=== PATIENT | female | born 1940 | race Caucasian/White ===

== ENCOUNTER 2017-03-19 20:08 | Emergency (ER) | payer MEDICARE, BC ==
--- NOTE | 2017-03-19 20:45 | EDM.PDOC ---
ED HPI GENERAL MEDICAL PROBLEM - General Chief Complaint: Lower Extremity Injury/Pain Stated Complaint: FELL INJURED LEG HIP Time Seen by Provider: 03/19/17 20:20 Source of Information: Reports: Patient, EMS History Limitations: Reports: No Limitations - History of Present Illness INITIAL COMMENTS - FREE TEXT/NARRATIVE: 76-year-old female stumbled in her garage landing on her right hip. She has significant pain in the hip with any movement, is unable to get up and has shortening and external rotation of the right lower extremity. She has no numbness to the foot and can move her toes. Other than a small superficial abrasion on the elbow she has no other injury. She was able to call the ambulance right away so there was no significant downtime. She does have chronic atrial fibrillation and is on Coumadin. Onset: Sudden Duration: Hour(s): (Within the last hour) Location: Reports: Lower Extremity, Right Severity: Moderate Worsens with: Reports: Movement (Any movement of the right lower extremity causes increased pain) right hip Pain Score (Numeric/FACES): 10 - Related Data Allergies Allergy/AdvReac Type Severity Reaction Status Date / Time adhesive Allergy Mild Rash Verified 05/18/15 08:23 bacitracin Allergy Blisters Verified 05/18/15 08:23 brimonidine tartrate Allergy Swelling Verified 05/18/15 08:23 [From Alphagan P] chloramphenicol Allergy Hives Verified 05/18/15 08:23 [From Chloromycetin] chloramphenicol sod succ Allergy Hives Verified 05/18/15 08:23 [From Chloromycetin] lidocaine [From Lidoderm] Allergy Rash Verified 05/18/15 08:23 timolol maleate Allergy Swelling Verified 05/18/15 08:23 [From Timoptic] vancomycin Allergy Hives Verified 05/22/15 17:51 codeine AdvReac Nausea and Verified 05/18/15 08:23 Vomiting meperidine HCl [From Demerol] AdvReac Nausea and Verified 05/18/15 08:23 Vomiting Home Meds: Home Meds Betaxolol [Betoptic S 0.25% Ophth Susp] 1 drop EYERT BID 02/25/13 [History] Latanoprost [Xalatan 0.005% Ophth Soln] 1 drop EYERT BEDTIME 02/25/13 [History] Metoprolol Tartrate [Lopressor] 100 mg PO BID 02/25/13 [History] Thyroid [[place] Thyroid] 60 mg PO SUMOWETHFR@0730 02/25/13 [History] Warfarin Sodium 5 mg PO SUTUTHSA 02/25/13 [History] atorvaSTATin [Lipitor] 60 mg PO BEDTIME 02/26/13 [History] Calcium Carbonate/Vitamin D3 [Calcium Carbonate/Vitamin D 1250 MG-200 Unit] 1 tab PO TID 02/13/15 [History] Glucosamine Sulfate 500 mg PO BID 02/13/15 [History] [place]-3S/DHA/Epa/Fish Oil [[place]-3 Fish Oil 1,000 mg Sfgl] 1,000 mg PO TID 02/18 [History] Cholecalciferol (Vitamin D3) [Vitamin D3] 1 tab PO BID 05/10/15 [History] Multivitamin [Multivitamins] 1 tab PO DAILY 05/10/15 [History] Warfarin Sodium 2.5 mg PO MOWEFR 05/10/15 [History] Furosemide [Lasix] 20 mg PO DAILY 05/15/15 [History] Thyroid [[place] Thyroid] 120 mg PO TUSA@0730 05/18/15 [History] Diltiazem HCl [Cartia Xt] 120 mg PO DAILY 03/19/17 [History] Past Medical History Other Respiratory History: Has not been using CPAP Other Neuro History: no residual Other Endocrine/Metabolic History: prediabetic Other Hematologic History: on coumadin - Past Surgical History Other Cardiovascular Surgeries/Procedures: cardioversions, DVT in right leg, stent brachiocephalic stent Other GI Surgeries/Procedures: rhonda echo prior to ablation and cardioversions Other Neurological Surgeries/Procedures: blocked l- caroitendartectomy x2 Other Musculoskeletal Surgeries/Procedures:: fx right ankle Other Oncologic Surgeries/Procedures: left mastectomy Social & Family History - Tobacco Use Smoking Status *Q: Never Smoker Years of Tobacco use: 50 Packs/Tins Daily: 1 Used Tobacco, but Quit: Yes Month Tobacco Last Used: February Second Hand Smoke Exposure: No - Alcohol Use Days Per Week of Alcohol Use: 7 Number of Drinks Per Day: 1 Total Drinks Per Week: 7 - Recreational Drug Use Recreational Drug Use: No - Living Situation & Occupation Living situation: Reports: , with Spouse Occupation: Retired Review of Systems - Review of Systems Review Of Systems: See Below Constitutional: Denies: Fever Respiratory: Denies: Shortness of Breath Cardiovascular: Denies: Chest Pain GI/Abdominal: Denies: Abdominal Pain Genitourinary: Denies: Dysuria Skin: Reports: Other (Small abrasion on the right elbow) Neurological: Denies: Headache ED EXAM, GENERAL - Physical Exam Exam: See Below Exam Limited By: No Limitations General Appearance: Alert, No Apparent Distress, Other (Patient is fairly comfortable on arrival to ER, received Dilaudid for pain control in route. No additional pain medication was needed initially.) Respiratory/Chest: No Respiratory Distress Cardiovascular: Irregularly Irregular GI/Abdominal: Soft, Non-Tender Extremities: Other (Patient is very tender around the proximal right femur especially with any passive range of motion of the right leg. She has an excellent dorsalis pedis pulse on the right side and normal sensation and movement of the toes) Neurological: Alert, Oriented Psychiatric: Normal Affect, Normal Mood Skin Exam: Warm, Dry Course - Vital Signs Last Recorded V/S: Last Vital Signs Temp 97.9 F 03/19/17 20:13 Pulse 60 03/19/17 22:50 Resp 20 03/19/17 22:50 BP 142/99 H 03/19/17 22:50 Pulse Ox 98 03/19/17 22:50 - Orders/Labs/Meds Orders: Active Orders 24 hr Category Date Time Status Insert Webster Catheter [Insert Urinary Catheter] [OM.PC] Care 03/19/17 20:45 Ordered Q24H Urinary Catheter Assessment [RC] ASDIRECTED Care 03/19/17 20:40 Active Hip Min 2V or 3V w Pelvis Rt [CR] Stat Exams 03/19/17 20:40 Taken Labs: Laboratory Tests 03/19/17 03/19/17 03/19/17 Range/Units 20:53 20:53 20:53 WBC 8.4 (4.5-11.0) K/uL RBC 3.33 (3.30-5.50) M/uL Hgb 12.6 D (12.0-15.0) g/dL Hct 36.6 (36.0-48.0) % MCV 110 H (80-98) fL MCH 38 H (27-31) pg MCHC 34 (32-36) % Plt Count 124 L (150-400) K/uL Neut % (Auto) 72 H (36-66) % Lymph % (Auto) 17 L (24-44) % [place] % (Auto) 9 H (2-6) % Eos % (Auto) 1 L (2-4) % Baso % (Auto) 1 (0-1) % PT 20.3 H (9.5-12.0) sec INR 1.85 H (0.80-1.20) Sodium 142 (140-148) mmol/L Potassium 3.3 L (3.6-5.2) mmol/L Chloride 100 (100-108) mmol/L Carbon Dioxide 32 (21-32) mmol/L Anion Gap 13.3 (5.0-14.0) mmol/L BUN 20 H D (7-18) mg/dL Creatinine 1.0 (0.6-1.0) mg/dL Est Cr Clr Drug Dosing 53.49 mL/min Estimated GFR (MDRD) 54 L (>60) Glucose 110 H (74-106) mg/dL Calcium 8.5 (8.5-10.1) mg/dL - Re-Assessments/Exams Free Text/Narrative Re-Assessment/Exam: 03/19/17 20:45 CBC, BMP and pro time were obtained as well as an x-ray of the right hip and pelvis. 03/19/17 21:22 X-ray confirmed an intertrochanteric fracture with displacement. 03/19/17 21:22 Hemoglobin and white count are normal. INR is 1.85. A Webster was placed, orthopedics in [place] is unable to accept the patient. 03/19/17 22:24 Dr. Salas and Dr. Estrada of [facility] were kind enough to accept the patient. She'll be transferred via EMS. Departure - Departure Time of Disposition: 22:59 Disposition: DC/Tfer to Other Condition: Fair Clinical Impression: Closed intertrochanteric fracture of right hip Qualifiers: Encounter type: initial encounter Fracture alignment: displaced Qualified Code( s): S72.141A - Displaced intertrochanteric fracture of right femur, initial encounter for closed fracture Atrial fibrillation Qualifiers: Atrial fibrillation type: chronic Qualified Code(s): I48.2 - Chronic atrial fibrillation - Discharge Information Referrals: Gill Corrales PA [Primary Care Provider] - Forms: ED Department Discharge Care Plan Goals: Patient will be transferred to [facility] for inpatient hospitalization, medical evaluation and ultimately right hip orthopedic repair. - My Orders Last 24 Hours: My Active Orders 03/19/17 20:40 Urinary Catheter Assessment [RC] ASDIRECTED Hip Min 2V or 3V w Pelvis Rt [CR] Stat 03/19/17 20:45 Insert Webster Catheter [Insert Urinary Catheter] [OM.PC] Q24H - Assessment/Plan Last 24 Hours: My Active Orders 03/19/17 20:40 Urinary Catheter Assessment [RC] ASDIRECTED Hip Min 2V or 3V w Pelvis Rt [CR] Stat 03/19/17 20:45 Insert Webster Catheter [Insert Urinary Catheter] [OM.PC] Q24H
[2017-03-19 22:51] VITALS: BP 142/99
--- NOTE | 2017-03-20 09:20 | CR ---
Hip Min 2V or 3V w Pelvis Rt HISTORY: Fall, pain. COMPARISON: None FINDINGS: Intertrochanteric fracture of the right hip with avulsion of the lesser trochanter. Moderat e angulation of the fracture. Moderate degenerative change. The visualized pelvis demonstrates no fra cture.
== END 2017-03-19 23:00 | disposition other institution (70) ==
LOC: JP.ED 20:08
DX: S72.141A Displaced intertrochanteric fracture of right femur, initial encounter for closed fracture (principal); I48.2 Chronic atrial fibrillation; Z88.8 Allergy status to other drugs, medicaments and biological substances; Z88.1 Allergy status to other antibiotic agents; Z88.5 Allergy status to narcotic agent; Z79.899 Other long term (current) drug therapy; Z79.01 Long term (current) use of anticoagulants; W18.40XA Slipping, tripping and stumbling without falling, unspecified, initial encounter
CPT/HCPCS: 36415; 51702; 73502-26-RT; 73502-RT; 80048; 85025; 85610; 99285; 99285-25

== ENCOUNTER 2017-05-12 05:55 | Inpatient (IN) | payer MEDICARE, BC ==
--- NOTE | 2017-05-12 06:33 | EDM.PDOC ---
<OfficerKristian - Last Filed: 05/12/17 06:30> ED HPI GENERAL MEDICAL PROBLEM - General Stated Complaint: SOB Time Seen by Provider: 05/12/17 06:21 Source of Information: Reports: Patient, Family, RN Notes Reviewed History Limitations: Reports: No Limitations - History of Present Illness INITIAL COMMENTS - FREE TEXT/NARRATIVE: 76-year-old female presents to the emergency department day complaint of shortness of breath, she states she was feeling fine yesterday has recently discharged from the hospital for femur fracture, 2 weeks ago this morning she awoke at about 5 this morning sudden shortness of breath feels better when she sits up, at this time when she sitting up she does not feel short of breath however she lays back down she will get short of breath, denies any chest pain nausea vomiting diaphoresis no particular weight gain or leg swelling was recently stopped from her Lasix - Related Data Allergies Allergy/AdvReac Type Severity Reaction Status Date / Time adhesive Allergy Mild Rash Verified 05/12/17 06:04 bacitracin Allergy Blisters Verified 05/12/17 06:04 brimonidine tartrate Allergy Swelling Verified 05/12/17 06:04 [From Alphagan P] chloramphenicol Allergy Hives Verified 05/12/17 06:04 [From Chloromycetin] chloramphenicol sod succ Allergy Hives Verified 05/12/17 06:04 [From Chloromycetin] lidocaine [From Lidoderm] Allergy Rash Verified 05/12/17 06:04 timolol maleate Allergy Swelling Verified 05/12/17 06:04 [From Timoptic] vancomycin Allergy Hives Verified 05/12/17 06:04 codeine AdvReac Nausea and Verified 05/12/17 06:04 Vomiting meperidine HCl [From Demerol] AdvReac Nausea and Verified 05/12/17 06:04 Vomiting Home Meds: Home Meds Betaxolol [Betoptic S 0.25% Ophth Susp] 1 drop EYERT BID 02/25/13 [History] Metoprolol Tartrate [Lopressor] 50 mg PO BID 02/25/13 [History] Thyroid [[place] Thyroid] 60 mg PO SUMOWETHFR@0730 02/25/13 [History] Warfarin Sodium 5 mg PO SUTUTHSA 02/25/13 [History] atorvaSTATin [Lipitor] 60 mg PO BEDTIME 09/10/13 [History] Calcium Carbonate/Vitamin D3 [Calcium Carbonate/Vitamin D 1250 MG-200 Unit] 1 tab PO TID 02/13/15 [History] Glucosamine Sulfate 500 mg PO BID 02/13/15 [History] [place]-3S/DHA/Epa/Fish Oil [[place]-3 Fish Oil 1,000 mg Sfgl] 1,000 mg PO TID 02/18 [History] Cholecalciferol (Vitamin D3) [Vitamin D3] 1 tab PO BID 05/10/15 [History] Multivitamin [Multivitamins] 1 tab PO DAILY 05/10/15 [History] Warfarin Sodium 2.5 mg PO MOWEFR 05/10/15 [History] Thyroid [[place] Thyroid] 120 mg PO TUSA@0730 05/18/15 [History] Magnesium Oxide [Magnesium] 05/12/17 [History] Potassium Chloride [Potassium Chloride] 05/12/17 [History] Past Medical History Other Respiratory History: Has not been using CPAP Endocrine/Metabolic History: Reports: Hypothyroidism Other Endocrine/Metabolic History: prediabetic Hematologic History: Reports: Anticoagulation Therapy - Past Surgical History Other Cardiovascular Surgeries/Procedures: cardioversions, DVT in right leg, stent brachiocephalic stent Other GI Surgeries/Procedures: rhonda echo prior to ablation and cardioversions Other Neurological Surgeries/Procedures: blocked l- caroitendartectomy x2 Other Musculoskeletal Surgeries/Procedures:: fx right ankle Other Oncologic Surgeries/Procedures: left mastectomy Social & Family History - Tobacco Use Smoking Status *Q: Never Smoker Years of Tobacco use: 50 Packs/Tins Daily: 1 Used Tobacco, but Quit: Yes Month Tobacco Last Used: February Second Hand Smoke Exposure: No - Alcohol Use Days Per Week of Alcohol Use: 7 Number of Drinks Per Day: 1 Total Drinks Per Week: 7 - Recreational Drug Use Recreational Drug Use: No - Living Situation & Occupation Living situation: Reports: , with Spouse Occupation: Retired ED ROS GENERAL - Review of Systems Review Of Systems: See Below Constitutional: Denies: Fever, Chills HEENT: Reports: No Symptoms Respiratory: Reports: Shortness of Breath. Denies: Wheezing, Cough, Sputum Cardiovascular: Reports: No Symptoms GI/Abdominal: Reports: No Symptoms : Reports: No Symptoms Musculoskeletal: Reports: No Symptoms Skin: Reports: No Symptoms Neurological: Reports: No Symptoms ED EXAM, GENERAL - Physical Exam Exam: See Below Free Text/Narrative:: General: Elderly female, not in any distress, alert and oriented x3 HEENT: head is atraumatic normocephalic, eyes pupils equal round reactive to light, sclera clear no conjunctivitis appreciated. Ears tympanic membranes clear and [place] landmarks and light reflex are present bilaterally canals are clear. Nose no septal deviation, nares are clear, no blood present. Mouth mucosa is moist and pink no erythema or exudate noted in soft palate, tongue is midline uvula is midline, dentition is intact. Neck: Supple no thyromegaly no tracheal deviation. Nodes: Cervical nodes subclavicular nodes nontender no palpable lymphadenopathy noted. Lungs: clear to auscultation bilaterally with symmetrical respirations, no adventitious noise appreciated. CV: Regular rate and rhythm S1 and S2 appreciated no murmurs rubs or gallops noted. Abdomen: Soft, nontender, no palpable masses or organomegaly appreciated, no distention no guarding bowel sounds are present, . Neuro: Cranial nerves II through XII grossly intact Skin: Warm and dry, intact Extremities: Trace edema appreciated in lower extremities bilaterally Course - Vital Signs Last Recorded V/S: Last Vital Signs Temp 98.8 F 05/12/17 10:00 Pulse 108 H 05/12/17 12:00 Resp 18 05/12/17 12:00 BP 119/66 05/12/17 12:00 Pulse Ox 100 05/12/17 12:00 - Orders/Labs/Meds Orders: Active Orders 24 hr Category Date Time Status Cardiac Monitoring [RC] .As Directed Care 05/12/17 06:28 Inactive Ang Chest [CT] Stat Exams 05/12/17 07:19 Taken Sodium Chloride 0.9% [Saline Flush] Med 05/12/17 07:38 Active 10 ml FLUSH ONETIME PRN EKG 12 Lead [EK] Stat Ther 05/12/17 06:29 Stop Req Medication Orders Acetaminophen (Tylenol) 650 mg PO Q4H PRN PRN Reason: Pain (Mild 1-3)/fever Atorvastatin Calcium (Lipitor) 60 mg PO BEDTIME CELE Diltiazem HCl 100 mg/ Sodium (Chloride) 100 mls @ 5 mls/hr IV TITRATE CELE; 5 MG /HR PRN Reason: Protocol Last Titration: 05/12/17 13:38 Dose: 10 mg/hr, 10 mls/hr Admin: 05/12/17 10:25 Dose: 5 mg/hr, 5 mls/hr Sodium Chloride (Normal Saline) 1,000 mls @ 25 mls/hr IV ASDIRECTED [facility] Last Admin: 05/12/17 10:20 Dose: 25 mls/hr Metoprolol Tartrate (Lopressor) 50 mg PO Q12H [facility] Non-Formulary Medication (Betaxolol [Betoptic S 0.25% Ophth Susp]) 1 drop EYERT BID [facility] Ondansetron HCl (Zofran Odt) 4 mg PO Q6H PRN PRN Reason: Nausea able to take PO Polyethylene Glycol (Miralax) 17 gm PO DAILY PRN PRN Reason: Constipation Senna/Docusate Sodium (Senna Plus) 1 tab PO BID PRN PRN Reason: Constipation Sodium Chloride (Saline Flush) 10 ml FLUSH ONETIME PRN PRN Reason: PER RADIOLOGY PROTOCOL Last Admin: 05/12/17 07:58 Dose: 10 ml Thyroid ([place] Thyroid) 60 mg PO SUMOWETHFR@0730 [facility] Last Admin: 05/12/17 10:32 Dose: 60 mg Thyroid ([place] Thyroid) 120 mg PO TUSA@0730 [facility] Warfarin Sodium (Coumadin) 2.5 mg PO MoWeFr@1300 [facility] Last Admin: 05/12/17 13:28 Dose: 2.5 mg Warfarin Sodium (Coumadin) 5 mg PO SuTuThSa@1300 [facility] Labs: Laboratory Tests 05/12/17 05/12/17 05/12/17 Range/Units 06:37 06:37 06:37 WBC 6.7 (4.5-11.0) K/uL RBC 3.25 L (3.30-5.50) M/uL Hgb 11.0 L (12.0-15.0) g/dL Hct 34.8 L (36.0-48.0) % MCV 107 H (80-98) fL MCH 34 H (27-31) pg MCHC 32 (32-36) % Plt Count 150 (150-400) K/uL Neut % (Auto) 73 H (36-66) % Lymph % (Auto) 12 L (24-44) % Pepin % (Auto) 13 H (2-6) % Eos % (Auto) 3 (2-4) % Baso % (Auto) 1 (0-1) % PT 25.3 H (9.5-12.0) sec INR 2.28 H (0.80-1.20) APTT 34.0 (27.0-36.0) sec Sodium 142 (140-148) mmol/L Potassium 4.3 (3.6-5.2) mmol/L Chloride 104 (100-108) mmol/L Carbon Dioxide 29 (21-32) mmol/L Anion Gap 8.7 (5.0-14.0) mmol/L BUN 18 (7-18) mg/dL Creatinine 0.8 (0.6-1.0) mg/dL Est Cr Clr Drug Dosing 66.87 mL/min Estimated GFR (MDRD) > 60 (>60) Glucose 98 (74-106) mg/dL Calcium 9.4 (8.5-10.1) mg/dL Total Bilirubin 0.7 (0.2-1.0) mg/dL AST 32 (15-37) U/L ALT 24 (12-78) U/L Alkaline Phosphatase 99 (46-116) U/L CK-MB (CK-2) 0.3 (0-3.6) mg/mL Troponin I < 0.017 (0.000-0.056) ng/mL NT-Pro-B Natriuret Pep (5-450) pg/mL Total Protein 7.0 (6.4-8.2) g/dL Albumin 2.9 L (3.4-5.0) g/dL Globulin 4.1 H (2.3-3.5) g/dL Albumin/Globulin Ratio 0.7 L (1.2-2.2) 05/12/17 Range/Units 06:58 WBC (4.5-11.0) K/uL RBC (3.30-5.50) M/uL Hgb (12.0-15.0) g/dL Hct (36.0-48.0) % MCV (80-98) fL MCH (27-31) pg MCHC (32-36) % Plt Count (150-400) K/uL Neut % (Auto) (36-66) % Lymph % (Auto) (24-44) % Pepin % (Auto) (2-6) % Eos % (Auto) (2-4) % Baso % (Auto) (0-1) % PT (9.5-12.0) sec INR (0.80-1.20) APTT (27.0-36.0) sec Sodium (140-148) mmol/L Potassium (3.6-5.2) mmol/L Chloride (100-108) mmol/L Carbon Dioxide (21-32) mmol/L Anion Gap (5.0-14.0) mmol/L BUN (7-18) mg/dL Creatinine (0.6-1.0) mg/dL Est Cr Clr Drug Dosing mL/min Estimated GFR (MDRD) (>60) Glucose (74-106) mg/dL Calcium (8.5-10.1) mg/dL Total Bilirubin (0.2-1.0) mg/dL AST (15-37) U/L ALT (12-78) U/L Alkaline Phosphatase (46-116) U/L CK-MB (CK-2) (0-3.6) mg/mL Troponin I (0.000-0.056) ng/mL NT-Pro-B Natriuret Pep 2684 H (5-450) pg/mL Total Protein (6.4-8.2) g/dL Albumin (3.4-5.0) g/dL Globulin (2.3-3.5) g/dL Albumin/Globulin Ratio (1.2-2.2) Meds: Medications Generic Name Dose Route Start Last Admin Trade Name Freq PRN Reason Stop Dose Admin Acetaminophen 650 mg 05/12/17 09:59 Tylenol PO Q4H PRN Pain (Mild 1-3)/fever Atorvastatin Calcium 60 mg 05/12/17 21:00 Lipitor PO BEDTIME CELE Diltiazem HCl 100 mg/ Sodium 100 mls @ 5 mls/hr 05/12/17 09:59 05/12/17 13:38 Chloride IV 10 mg/hr TITRATE CELE 10 mls/hr Protocol Titration 5 MG/HR Sodium Chloride 1,000 mls @ 25 mls/hr 05/12/17 09:59 05/12/17 10:20 Normal Saline IV 25 mls/hr ASDIRECTED CELE Administration Metoprolol Tartrate 50 mg 05/12/17 21:00 Lopressor PO Q12H CELE Non-Formulary Medication 1 drop 05/12/17 21:00 Betaxolol [Betoptic S 0.25% Ophth Susp] EYERT BID CEEL Ondansetron HCl 4 mg 05/12/17 09:59 Zofran Odt PO Q6H PRN Nausea able to take PO Polyethylene Glycol 17 gm 05/12/17 09:59 Miralax PO DAILY PRN Constipation Senna/Docusate Sodium 1 tab 05/12/17 09:59 Senna Plus PO BID PRN Constipation Sodium Chloride 10 ml 05/12/17 07:38 05/12/17 07:58 Saline Flush FLUSH 10 ml ONETIME PRN Administration PER RADIOLOGY PROTOCOL Thyroid 60 mg 05/12/17 11:30 05/12/17 10:32 [place] Thyroid PO 60 mg SUMOWETHFR@0730 CELE Administration Thyroid 120 mg 05/13/17 07:30 [place] Thyroid PO TUSA@0730 CELE Warfarin Sodium 2.5 mg 05/12/17 13:00 05/12/17 13:28 Coumadin PO 2.5 mg MoWeFr@1300 CELE Administration Warfarin Sodium 5 mg 05/13/17 13:00 Coumadin PO SuTuThSa@1300 [facility] Discontinued Medications Generic Name Dose Route Start Last Admin Trade Name Freq PRN Reason Stop Dose Admin Furosemide 40 mg 05/12/17 08:10 05/12/17 08:17 Lasix IVPUSH 05/12/17 08:11 40 mg ONETIME ONE Administration Sodium Chloride 1,000 mls @ 500 mls/hr 05/12/17 07:30 05/12/17 08:17 Normal Saline IV 10 mls/hr ASDIRECTED CELE Infusion Sodium Chloride 90 mls @ 3 mls/sec 05/12/17 07:38 05/12/17 07:58 Normal Saline IV 05/12/17 07:39 3 mls/sec ONETIME ONE Administration Iopamidol 90 ml 05/12/17 07:45 05/12/17 07:58 [id number] (76%) IV 100 ml . DIRECTED CELE Administration Metoprolol Tartrate 2.5 mg 05/12/17 07:18 05/12/17 07:24 Lopressor IVPUSH 05/12/17 07:19 2.5 mg ONETIME ONE Administration Metoprolol Tartrate 50 mg 05/12/17 07:18 05/12/17 07:27 Lopressor PO 05/12/17 07:19 50 mg ONETIME ONE Administration Departure - Departure Disposition: Admitted As Inpatient 66 Clinical Impression: SOB (shortness of breath) Atrial fibrillation Qualifiers: Atrial fibrillation type: chronic Qualified Code(s): I48.2 - Chronic atrial fibrillation Congestive heart failure Qualifiers: Congestive heart failure type: unspecified congestive heart failure type Congestive heart failure chronicity: acute on chronic Qualified Code(s): I50.9 - Heart failure, unspecified - Discharge Information - My Orders Last 24 Hours: My Active Orders 05/12/17 07:19 Ang Chest [CT] Stat 05/12/17 07:38 Sodium Chloride 0.9% [Saline Flush] 10 ml FLUSH ONETIME PRN - Assessment/Plan Last 24 Hours: My Active Orders 05/12/17 07:19 Ang Chest [CT] Stat 05/12/17 07:38 Sodium Chloride 0.9% [Saline Flush] 10 ml FLUSH ONETIME PRN <Manny Espinosa - Last Filed: 05/12/17 14:05> Course - Re-Assessments/Exams Free Text/Narrative Re-Assessment/Exam: 05/12/17 07:27 Patient care turned over from Officer. Basic rhythm is atrial fibrillation, however rate is persistently elevated. She also needs oxygen nasal cannula to feel comfortable and had normal oxygen saturations. Her INR is 2.5, but I still think she is a risk for PE with her symptoms and recent surgery. Normal saline hydration was initiated, she was given 2.5 mg of IV Lopressor and 50 mg of oral metoprolol which is her normal morning dose to give her some rate control and sent back for a CT of her chest with IV contrast. 05/12/17 08:[address] was negative for PE but showed significant findings of congestive heart failure. Patient was given 40 mg of IV Lasix, and I think she needs admission for the next 1-2 days for diuresis, rate control, and to get her medications optimized. Departure - Departure Time of Disposition: 09:32 Condition: Fair
[2017-05-12] MEDS ORDERED: Metoprolol Tartrate 5 MG/5 ML SDV IVPUSH ONE (07:18)
[2017-05-12] MEDS ORDERED: Metoprolol Tartrate 50 MG Tab PO ONE (07:18)
[2017-05-12] MEDS ORDERED: Sodium Chloride 0.9% 1,000 ML IV SCH (07:30)
[2017-05-12] MEDS ORDERED: Sodium Chloride 0.9% 90 ML IV ONE (07:38)
[2017-05-12] MEDS ORDERED: Sodium Chloride 0.9% 10 ML Syringe FLUSH PRN (07:38)
[2017-05-12] MEDS ORDERED: Iopamidol 755 Mg/ML 100 ML Bottle IV SCH (07:45)
[2017-05-12] MEDS ORDERED: Furosemide 40 MG/4 ML VIAL IVPUSH ONE (08:10)
--- NOTE | 2017-05-12 09:21 | PCM.HP ---
H&P History of Present Illness - General Date of Service: 05/12/17 Admit Problem/Dx: Admission Diagnosis/Problem Admission Diagnosis/Problem CHF, Congestive heart failure Source of Information: Patient, Family, Provider History Limitations: Reports: No Limitations - History of Present Illness Initial Comments - Free Text/Narative: Angie presents to the emergency room with shortness of breath that woke her from sleep. She reports that things have been going well recently and did not have any concerns prior to waking up around 3 AM this morning. She reports the sudden onset of shortness of breath which did not get better after she woke up. She tried several different sleeping positions and was unable to relieve the shortness of breath. She has an occasional dry cough. No reports of chest pain. She has not noticed any lower extremity edema. No recent fevers or chills. No abdominal pain or change in bowel habits. She does note that she was hospitalized about 6 weeks ago and her furosemide was stopped at that time and her metoprolol dose was decreased. She has noticed some occasional palpitations but has not had the sensation that her heart is racing. Workup in the emergency room was remarkable for atrial fibrillation with rapid ventricular response as well as evidence for congestive heart failure with bilateral pleural effusions and some congestive change on x-ray in addition to compatible exam findings. She will be admitted for management of her atrial fibrillation and congestive heart failure. - Related Data Allergies/Adverse Reactions: Allergies Allergy/AdvReac Type Severity Reaction Status Date / Time adhesive Allergy Mild Rash Verified 05/12/17 06:04 bacitracin Allergy Blisters Verified 05/12/17 06:04 brimonidine tartrate Allergy Swelling Verified 05/12/17 06:04 [From Alphagan P] chloramphenicol Allergy Hives Verified 05/12/17 06:04 [From Chloromycetin] chloramphenicol sod succ Allergy Hives Verified 05/12/17 06:04 [From Chloromycetin] lidocaine [From Lidoderm] Allergy Rash Verified 05/12/17 06:04 timolol maleate Allergy Swelling Verified 05/12/17 06:04 [From Timoptic] vancomycin Allergy Hives Verified 05/12/17 06:04 codeine AdvReac Nausea and Verified 05/12/17 06:04 Vomiting meperidine HCl [From Demerol] AdvReac Nausea and Verified 05/12/17 06:04 Vomiting Home Medications: Home Meds Betaxolol [Betoptic S 0.25% Ophth Susp] 1 drop EYERT BID 02/25/13 [History] Metoprolol Tartrate [Lopressor] 50 mg PO BID 02/25/13 [History] Thyroid [[place] Thyroid] 60 mg PO SUMOWETHFR@0730 02/25/13 [History] Warfarin Sodium 5 mg PO SUTUTHSA 02/25/13 [History] atorvaSTATin [Lipitor] 60 mg PO BEDTIME 02/26/13 [History] Calcium Carbonate/Vitamin D3 [Calcium Carbonate/Vitamin D 1250 MG-200 Unit] 1 tab PO TID 02/13/15 [History] Glucosamine Sulfate 500 mg PO BID 02/13/15 [History] [place]-3S/DHA/Epa/Fish Oil [[place]-3 Fish Oil 1,000 mg Sfgl] 1,000 mg PO TID 02/18 [History] Cholecalciferol (Vitamin D3) [Vitamin D3] 1 tab PO BID 05/10/15 [History] Multivitamin [Multivitamins] 1 tab PO DAILY 05/10/15 [History] Warfarin Sodium 2.5 mg PO MOWEFR 05/10/15 [History] Thyroid [[place] Thyroid] 120 mg PO TUSA@0730 05/18/15 [History] Magnesium Oxide [Magnesium] 05/12/17 [History] Potassium Chloride [Potassium Chloride] 05/12/17 [History] Past Medical History Other Respiratory History: Has not been using CPAP Other Neuro History: no residual Endocrine/Metabolic History: Reports: Hypothyroidism Other Endocrine/Metabolic History: prediabetic Hematologic History: Reports: Anticoagulation Therapy Other Hematologic History: on coumadin - Past Surgical History Other Cardiovascular Surgeries/Procedures: cardioversions, DVT in right leg, stent brachiocephalic stent Other GI Surgeries/Procedures: rhonda echo prior to ablation and cardioversions Other Neurological Surgeries/Procedures: blocked l- caroitendartectomy x2 Other Musculoskeletal Surgeries/Procedures:: fx right ankle Other Oncologic Surgeries/Procedures: left mastectomy Social & Family History - Family History Cardiac: Denies: CAD - Tobacco Use Smoking Status *Q: Never Smoker Years of Tobacco use: 50 Packs/Tins Daily: 1 Used Tobacco, but Quit: Yes Month Tobacco Last Used: February Second Hand Smoke Exposure: No - Alcohol Use Days Per Week of Alcohol Use: 7 Number of Drinks Per Day: 1 Total Drinks Per Week: 7 - Recreational Drug Use Recreational Drug Use: No - Living Situation & Occupation Living situation: Reports: , with Spouse Occupation: Retired H&P Review of Systems - Review of Systems: Review Of Systems: See Below Free Text/Narrative: A complete 12 point review of systems was obtained. Pertinent positives and negatives are noted in the history of present illness. All other systems were reviewed and were negative except as noted. Exam - Exam Exam: See Below - Vital Signs Vital Signs: Last Vital Signs Temp 37.3 C 05/12/17 06:16 Pulse 121 H 05/12/17 08:15 Resp 20 05/12/17 08:15 BP 132/73 05/12/17 08:17 Pulse Ox 99 05/12/17 08:15 Weight: 86.183 kg - Exam Quality Assessment: Supplemental Oxygen General: Alert, Oriented, Cooperative. No: Mild Distress HEENT: Conjunctiva Clear, Mucosa Moist & [place]. No: Scleral Icterus Neck: Supple, Trachea Midline. No: Lymphadenopathy, Thyromegaly Lungs: Normal Respiratory Effort, Decreased Breath Sounds (Both bases), Crackles (Both bases). No: Wheezing Cardiovascular: Irregular Rhythm, Tachycardia. No: Systolic Murmur Back Exam: Normal Inspection, Full Range of Motion Extremities: No Pedal Edema, Other (Chronic venous stasis changes of the right ankle). No: Increased Warmth Peripheral Pulses: 1+: Dorsalis Pedis (L), Dorsalis Pedis (R) Skin: Warm, Dry. No: Rash Neuro Extensive - Mental Status: Alert, Oriented x3, Nl Response to Commands Neuro Extensive - Motor, Sensory, Reflexes: CN II-XII Intact. No: Dysarthria, Abnormal Motor, Tremor Psychiatric: Alert, Normal Affect - Patient Data Lab Results Last 24 hrs: Laboratory Results - last 24 hr 05/12/17 05/12/17 05/12/17 Range/Units 06:37 06:37 06:37 WBC 6.7 (4.5-11.0) K/uL RBC 3.25 L (3.30-5.50) M/uL Hgb 11.0 L (12.0-15.0) g/dL Hct 34.8 L (36.0-48.0) % MCV 107 H (80-98) fL MCH 34 H (27-31) pg MCHC 32 (32-36) % Plt Count 150 (150-400) K/uL Neut % (Auto) 73 H (36-66) % Lymph % (Auto) 12 L (24-44) % [place] % (Auto) 13 H (2-6) % Eos % (Auto) 3 (2-4) % Baso % (Auto) 1 (0-1) % PT 25.3 H (9.5-12.0) sec INR 2.28 H (0.80-1.20) APTT 34.0 (27.0-36.0) sec Sodium 142 (140-148) mmol/L Potassium 4.3 (3.6-5.2) mmol/L Chloride 104 (100-108) mmol/L Carbon Dioxide 29 (21-32) mmol/L Anion Gap 8.7 (5.0-14.0) mmol/L BUN 18 (7-18) mg/dL Creatinine 0.8 (0.6-1.0) mg/dL Est Cr Clr Drug Dosing 66.87 mL/min Estimated GFR (MDRD) > 60 (>60) Glucose 98 (74-106) mg/dL Calcium 9.4 (8.5-10.1) mg/dL Total Bilirubin 0.7 (0.2-1.0) mg/dL AST 32 (15-37) U/L ALT 24 (12-78) U/L Alkaline Phosphatase 99 (46-116) U/L CK-MB (CK-2) 0.3 (0-3.6) mg/mL Troponin I < 0.017 (0.000-0.056) ng/mL NT-Pro-B Natriuret Pep (5-450) pg/mL Total Protein 7.0 (6.4-8.2) g/dL Albumin 2.9 L (3.4-5.0) g/dL Globulin 4.1 H (2.3-3.5) g/dL Albumin/Globulin Ratio 0.7 L (1.2-2.2) 05/12/17 Range/Units 06:58 WBC (4.5-11.0) K/uL RBC (3.30-5.50) M/uL Hgb (12.0-15.0) g/dL Hct (36.0-48.0) % MCV (80-98) fL MCH (27-31) pg MCHC (32-36) % Plt Count (150-400) K/uL Neut % (Auto) (36-66) % Lymph % (Auto) (24-44) % [place] % (Auto) (2-6) % Eos % (Auto) (2-4) % Baso % (Auto) (0-1) % PT (9.5-12.0) sec INR (0.80-1.20) APTT (27.0-36.0) sec Sodium (140-148) mmol/L Potassium (3.6-5.2) mmol/L Chloride (100-108) mmol/L Carbon Dioxide (21-32) mmol/L Anion Gap (5.0-14.0) mmol/L BUN (7-18) mg/dL Creatinine (0.6-1.0) mg/dL Est Cr Clr Drug Dosing mL/min Estimated GFR (MDRD) (>60) Glucose (74-106) mg/dL Calcium (8.5-10.1) mg/dL Total Bilirubin (0.2-1.0) mg/dL AST (15-37) U/L ALT (12-78) U/L Alkaline Phosphatase (46-116) U/L CK-MB (CK-2) (0-3.6) mg/mL Troponin I (0.000-0.056) ng/mL NT-Pro-B Natriuret Pep 2684 H (5-450) pg/mL Total Protein (6.4-8.2) g/dL Albumin (3.4-5.0) g/dL Globulin (2.3-3.5) g/dL Albumin/Globulin Ratio (1.2-2.2) Result Diagrams: 05/12/17 06:37 05/12/17 06:37 Imaging Impressions Last 24 hrs: Chest x-ray - images personally reviewed - there is evidence for bilateral effusions which appear to be small on chest x-ray. Heart size is enlarged. No definite mass or infiltrate. CT pulmonary angiogram - images personally reviewed - [id number] bilateral pleural effusions are noted with no strong evidence for infiltrate or mass. EKG INTERPRETATION EKG Date: 05/12/17 Rhythm: A-Fib Rate (Beats/Min): 140 [place]: Normal P-Wave: Variable QRS: Normal ST-T: Normal QT: Normal *Q Meaningful Use (ADM) - VTE *Q VTE Criteria *Q: - VTE Risk Assess *Q Each Risk Factor Represents 1 Point: Congestive heart failure (CHF) Total Score 1 Point Risk Factors: 1 Each Risk Factor Represents 2 Points: None Total Score 2 Point Risk Factors: 0 Each Risk Factor Represents 3 Points: Age 75 Years or Greater, History of DVT/PE Total Score 3 Point Risk Factors: 6 Each Risk Factor Represents 5 Points: None Total Score 5 Point Risk Factors: 0 Venous Thromboembolism Risk Factor Score *Q: 7 - Stroke *Q Stroke Criteria *Q: - AMI *Q AMI Criteria *Q: - Problem List (1) Atrial fibrillation with rapid ventricular response SNOMED Code(s): 017547058837844 ICD Code: I48.91 - UNSPECIFIED ATRIAL FIBRILLATION Status: Acute Current Visit: Yes (2) Congestive heart failure SNOMED Code(s): 48744096 ICD Code: I50.9 - HEART FAILURE, UNSPECIFIED Status: Acute Current Visit : Yes Qualifiers: Congestive heart failure type: unspecified congestive heart failure type Congestive heart failure chronicity: acute on chronic Qualified Code(s): I50.9 - Heart failure, unspecified Problem List Initiated/Reviewed/Updated: Yes Orders Last 24hrs: Active Orders 24 hr Category Date Time Status Patient Status Manage Transfer [TRANSFER] Routine ADT 05/12/17 09:12 Ordered Cardiac Monitoring [RC] .As Directed Care 05/12/17 06:28 Active EKG Documentation Completion [RC] ASDIRECTED Care 05/12/17 06:29 Active Ang Chest [CT] Stat Exams 05/12/17 07:19 Taken Chest 1V Frontal [CR] Stat Exams 05/12/17 06:29 Taken Iopamidol [Isovue-370 (76%)] Med 05/12/17 07:45 Active 90 ml IV . DIRECTED Sodium Chloride 0.9% [Normal Saline] 1,000 ml Med 05/12/17 07:30 Active IV ASDIRECTED Sodium Chloride 0.9% [Saline Flush] Med 05/12/17 07:38 Active 10 ml FLUSH ONETIME PRN Resuscitation Status Routine Resus Stat 05/12/17 09:14 Ordered EKG 12 Lead [EK] Stat Ther 05/12/17 06:29 Ordered Medication Orders Sodium Chloride (Normal Saline) 1,000 mls @ 500 mls/hr IV ASDIRECTED [facility] Last Infusion: 05/12/17 08:17 Dose: 10 mls/hr Admin: 05/12/17 07:28 Dose: 500 mls/hr Iopamidol (Isovue-370 (76%)) 90 ml IV . DIRECTED [facility] Last Admin: 05/12/17 07:58 Dose: 100 ml Sodium Chloride (Saline Flush) 10 ml FLUSH ONETIME PRN PRN Reason: PER RADIOLOGY PROTOCOL Last Admin: 05/12/17 07:58 Dose: 10 ml Assessment/Plan Comment:: ASSESSMENT AND PLAN - Acute on chronic congestive heart failure - diastolic heart failure suspected. Patient has history of low normal ejection fraction as of 2 years ago. She was taken off her diuretic 6 weeks ago. I suspect the atrial fibrillation is contributing to the worsening heart failure picture. She is not currently on an RIA inhibitor and this will be deferred until after diuresis. I don't believe her effusions are large enough for thoracentesis at this time. She has received furosemide in the emergency room. She is hypoxic. -Reassess volume status this afternoon -Continue beta timothy -Consider RIA inhibitor once more euvolemic -Low sodium diet -Supplement oxygen as needed -Echocardiogram, either inpatient if she still here on Monday or as an outpatient Atrial fibrillation with rapid ventricular response - likely contribution from volume overload and probably hypoxia. Her also reports fairly heavy alcohol intake over the past 5 days and this could be contributing as well. Laboratory studies look good including electrolytes. Blood pressure is stable at this time. -Diltiazem infusion -Continue metoprolol -Cardiac monitoring -Check magnesium -Optimize volume status as above History of right leg DVT - chronically anticoagulated. INR therapeutic. -Continue warfarin Maintenance issues - - DVT prophylaxis - warfarin - GI prophylaxis - not indicated - Nutrition - low sodium - Webster catheter - not indicated CODE STATUS - patient wishes to be DO NOT RESUSCITATE but is interested in a trial of intubation if necessary Admission justification - This patient will be admitted for inpatient services and is medically appropriate meeting medical necessity for inpatient admission as outlined in my documentation. I reasonably expect the patient will require inpatient services that span a period time over 2 midnights. I reasonably expect this patient to be discharged or transferred within 96 hours [facility] Disposition - anticipate discharge to home after the hospital stay Primary care physician - Cheri Prieto M.D.
[2017-05-12] MEDS ORDERED: Polyethylene Glycol 3350 Powder 17 GM Packet PO PRN (09:59)
[2017-05-12] MEDS ORDERED: Ondansetron 4 MG Tab.DIS PO PRN (09:59)
[2017-05-12] MEDS ORDERED: Acetaminophen 325 MG Tab PO PRN (09:59)
--- NOTE | 2017-05-12 10:04 | CR ---
Chest 1V Frontal HISTORY: Shortness of breath COMPARISON: CT chest 07/12/2016. FINDINGS: Small left-sided pleural effusion this was present on prior CT scan. Mild cardiomegaly. Bor derline congestive change with interstitial prominence in the perihilar regions. No dense consolidati on.
[2017-05-12] MEDS: Sodium Chloride 0.9% 1,000 ML IV SCH (10:20)
[2017-05-12] MEDS: Diltiazem 100 MG in Sodium Chloride 0.9% 100 ML IV SCH (10:25)
[2017-05-12] MEDS: Warfarin 2.5 MG Tab PO SCH (13:28)
[2017-05-12] MEDS ORDERED: Digoxin 500 MCG/2 ML Amp IVPUSH ONE (16:00)
[2017-05-12] MEDS: Magnesium Sulfate/Water 2 GM in Premix Bag 1 BAG IV SCH (18:52)
[2017-05-12] MEDS: atorvaSTATin 20 MG Tab PO SCH (21:03)
[2017-05-12] MEDS: Acetaminophen 500 MG Tab PO SCH (21:03)
[2017-05-12] MEDS: Metoprolol Tartrate 50 MG Tab PO SCH (21:04)
[2017-05-13] MEDS: Magnesium Sulfate/Water 2 GM in Premix Bag 1 BAG IV SCH ×3 (00:39→12:11)
[2017-05-13] MEDS: Acetaminophen 500 MG Tab PO SCH ×4 (03:44→20:49)
[2017-05-13] MEDS: Diltiazem 100 MG in Sodium Chloride 0.9% 100 ML IV SCH (04:00)
[2017-05-13] MEDS: Metoprolol Tartrate 50 MG Tab PO SCH (09:41)
--- NOTE | 2017-05-13 09:50 | PCM.PN ---
- General Info Date of Service: 05/13/17 Functional Status: Reports: Pain Controlled, Tolerating Diet - Review of Systems General: Reports: Weakness Pulmonary: Reports: Shortness of Breath Cardiovascular: Denies: Edema Systems Review Comment:: no acute events overnight. Rate control has improved but has not been optimal. Rate control has been limited by low blood pressure. She is off oxygen as of this morning. Symptomatically she feels better with less shortness of breath. She has not had any fevers. No abdominal pain or nausea. - Patient Data Vitals - Most Recent: Last Vital Signs Temp 36.0 C 05/13/17 08:00 Pulse 92 05/13/17 09:41 Resp 14 05/13/17 08:00 BP 88/61 L 05/13/17 09:41 Pulse Ox 93 L 05/13/17 08:00 Weight - Most Recent: 86.183 kg I&O - Last 24 Hours: Intake & Output 05/12/17 05/13/17 05/13/17 22:59 06:59 14:59 Intake Total 636 347 Output Total 100 700 Balance 536 -353 Lab Results Last 24 Hours: Laboratory Results - last 24 hr 05/12/17 05/12/17 05/13/17 Range/Units 15:13 22:26 05:11 WBC 4.8 (4.5-11.0) K/uL RBC 3.00 L (3.30-5.50) M/uL Hgb 10.4 L (12.0-15.0) g/dL Hct 32.3 L (36.0-48.0) % MCV 108 H (80-98) fL MCH 35 H (27-31) pg MCHC 32 (32-36) % Plt Count 139 L (150-400) K/uL PT (9.5-12.0) sec INR (0.80-1.20) Sodium (140-148) mmol/L Potassium (3.6-5.2) mmol/L Chloride (100-108) mmol/L Carbon Dioxide (21-32) mmol/L Anion Gap (5.0-14.0) mmol/L BUN (7-18) mg/dL Creatinine (0.6-1.0) mg/dL Est Cr Clr Drug Dosing mL/min Estimated GFR (MDRD) (>60) Glucose (74-106) mg/dL Calcium (8.5-10.1) mg/dL Magnesium 1.3 L (1.8-2.4) mg/dL TSH, Ultra Sensitive (0.358-3.740) uIU/mL Urine Color Yellow Urine Appearance Slightly cloudy Urine pH 5.0 (4.5-8.0) Ur Specific [place] 1.020 (1.008-1.030) Urine Protein 30 H (NEGATIVE) mg/dL Urine Glucose (UA) Normal (NEGATIVE) mg/dL Urine Ketones Negative (NEGATIVE) mg/dL Urine Occult Blood Negative (NEGATIVE) Urine Nitrite Negative (NEGATIVE) Urine Bilirubin Small (NEGATIVE) Urine Urobilinogen 1 (NORMAL) mg/dL Ur Leukocyte Esterase Small (NEGATIVE) Urine RBC Not seen (0-5) Urine WBC 0-5 (0-5) Ur Epithelial Cells Rare Amorphous Sediment Not seen Urine Bacteria Not seen Urine Mucus Rare 05/13/17 05/13/17 Range/Units 05:11 05:11 WBC (4.5-11.0) K/uL RBC (3.30-5.50) M/uL Hgb (12.0-15.0) g/dL Hct (36.0-48.0) % MCV (80-98) fL MCH (27-31) pg MCHC (32-36) % Plt Count (150-400) K/uL PT 19.7 H (9.5-12.0) sec INR 1.80 H (0.80-1.20) Sodium 141 (140-148) mmol/L Potassium 3.4 L (3.6-5.2) mmol/L Chloride 103 (100-108) mmol/L Carbon Dioxide 31 (21-32) mmol/L Anion Gap 10.4 (5.0-14.0) mmol/L BUN 16 (7-18) mg/dL Creatinine 0.8 (0.6-1.0) mg/dL Est Cr Clr Drug Dosing 66.87 mL/min Estimated GFR (MDRD) > 60 (>60) Glucose 90 (74-106) mg/dL Calcium 8.8 (8.5-10.1) mg/dL Magnesium (1.8-2.4) mg/dL TSH, Ultra Sensitive 2.045 (0.358-3.740) uIU/mL Urine Color Urine Appearance Urine pH (4.5-8.0) Ur Specific [place] (1.008-1.030) Urine Protein (NEGATIVE) mg/dL Urine Glucose (UA) (NEGATIVE) mg/dL Urine Ketones (NEGATIVE) mg/dL Urine Occult Blood (NEGATIVE) Urine Nitrite (NEGATIVE) Urine Bilirubin (NEGATIVE) Urine Urobilinogen (NORMAL) mg/dL Ur Leukocyte Esterase (NEGATIVE) Urine RBC (0-5) Urine WBC (0-5) Ur Epithelial Cells Amorphous Sediment Urine Bacteria Urine Mucus Med Orders - Current: Current Medications Acetaminophen (Tylenol Extra Strength) 1,000 mg PO Q6H [facility] Last Admin: 05/13/17 09:42 Dose: 1,000 mg Atorvastatin Calcium (Lipitor) 60 mg PO BEDTIME [facility] Last Admin: 05/12/17 21:03 Dose: 60 mg Diltiazem HCl 100 mg/ Sodium (Chloride) 100 mls @ 5 mls/hr IV TITRATE CELE; 5 MG /HR PRN Reason: Protocol Last Admin: 05/13/17 04:00 Dose: 2.5 mg/hr, 2.5 mls/hr Sodium Chloride (Normal Saline) 1,000 mls @ 25 mls/hr IV ASDIRECTED [facility] Last Admin: 05/12/17 10:20 Dose: 25 mls/hr Magnesium Sulfate 2 gm/ Premix 50 mls @ 12.5 mls/hr IV Q6H [facility] Stop: 05/13/17 16:29 Last Admin: 05/13/17 06:29 Dose: 12.5 mls/hr Metoprolol Tartrate (Lopressor) 50 mg PO Q12H [facility] Last Admin: 05/13/17 09:41 Dose: Not Given Non-Formulary Medication (Betaxolol [Betoptic S 0.25% Ophth Susp]) 1 drop EYERT BID [facility] Ondansetron HCl (Zofran Odt) 4 mg PO Q6H PRN PRN Reason: Nausea able to take PO Polyethylene Glycol (Miralax) 17 gm PO DAILY PRN PRN Reason: Constipation Senna/Docusate Sodium (Senna Plus) 1 tab PO BID PRN PRN Reason: Constipation Sodium Chloride (Saline Flush) 10 ml FLUSH ONETIME PRN PRN Reason: PER RADIOLOGY PROTOCOL Last Admin: 05/12/17 07:58 Dose: 10 ml Thyroid ([place] Thyroid) 60 mg PO SUMOWETHFR@0730 [facility] Last Admin: 05/12/17 10:32 Dose: 60 mg Thyroid ([place] Thyroid) 120 mg PO TUSA@0730 [facility] Last Admin: 05/13/17 08:04 Dose: 120 mg Warfarin Sodium (Coumadin) 2.5 mg PO MoWeFr@1300 [facility] Last Admin: 05/12/17 13:28 Dose: 2.5 mg Warfarin Sodium (Coumadin) 5 mg PO SuTuThSa@1300 [facility] Discontinued Medications Acetaminophen (Tylenol) 650 mg PO Q4H PRN PRN Reason: Pain (Mild 1-3)/fever Digoxin (Lanoxin) 125 mcg IVPUSH ONETIME ONE Stop: 05/12/17 16:01 Last Admin: 05/12/17 16:08 Dose: 125 mcg Furosemide (Lasix) 40 mg IVPUSH ONETIME ONE Stop: 05/12/17 08:11 Last Admin: 05/12/17 08:17 Dose: 40 mg Sodium Chloride (Normal Saline) 1,000 mls @ 500 mls/hr IV ASDIRECTED [facility] Last Infusion: 05/12/17 08:17 Dose: 10 mls/hr Sodium Chloride (Normal Saline) 90 mls @ 3 mls/sec IV ONETIME ONE Stop: 05/12/17 07:39 Last Admin: 05/12/17 07:58 Dose: 3 mls/sec Iopamidol (Isovue-370 (76%)) 90 ml IV . DIRECTED [facility] Last Admin: 05/12/17 07:58 Dose: 100 ml Metoprolol Tartrate (Lopressor) 2.5 mg IVPUSH ONETIME ONE Stop: 05/12/17 07:19 Last Admin: 05/12/17 07:24 Dose: 2.5 mg Metoprolol Tartrate (Lopressor) 50 mg PO ONETIME ONE Stop: 05/12/17 07:19 Last Admin: 05/12/17 07:27 Dose: 50 mg - Exam Quality Assessment: No: Supplemental Oxygen General: Alert, Oriented, Cooperative, No Acute Distress Neck: Supple Lungs: Normal Respiratory Effort, Decreased Breath Sounds (both bases), Crackles (both bases) Cardiovascular: Irregular Rhythm, Tachycardia GI/Abdominal Exam: Soft, No Distention Extremities: No Pedal Edema. No: Increased Warmth Skin: Warm, Dry Psy/Mental Status: Alert, Normal Affect - Problem List & Annotations (1) Atrial fibrillation with rapid ventricular response SNOMED Code(s): 504372605745537 Code(s): I48.91 - UNSPECIFIED ATRIAL FIBRILLATION Status: Acute Current Visit: Yes (2) Congestive heart failure SNOMED Code(s): 45598164 Code(s): I50.9 - HEART FAILURE, UNSPECIFIED Status: Acute Current Visit: Yes Qualifiers: Congestive heart failure type: unspecified congestive heart failure type Congestive heart failure chronicity: acute on chronic Qualified Code(s): I50.9 - Heart failure, unspecified - Problem List Review Problem List Initiated/Reviewed/Updated: Yes - My Orders Last 24 Hours: My Active Orders 05/12/17 09:14 Resuscitation Status Routine 05/12/17 09:59 Patient Status [ADT] Routine Bedrest Bedside Commode [RC] ASDIRECTED Cardiac Education [RC] Click to Edit Cardiac Monitoring [RC] CONTINUOUS Height and Weight [RC] DAILY Intake and Output [RC] QSHIFT Notify Provider Vital Signs [RC] ASDIRECTED Oxygen Therapy [RC] PRN Pulse Oximetry [RC] CONTINUOUS Up With Assistance [RC] ASDIRECTED VTE/DVT Education [RC] Per Unit Routine Vital Signs [RC] Q2HR Diltiazem [Cardizem] 100 mg Sodium Chloride 0.9% [Normal Saline] 100 ml IV TITRATE Docusate Sodium/Sennosides [Senna Plus] 1 tab PO BID PRN Ondansetron [Zofran ODT] 4 mg PO Q6H PRN Polyethylene Glycol 3350 [MiraLAX] 17 gm PO DAILY PRN Sodium Chloride 0.9% [Normal Saline] 1,000 ml IV ASDIRECTED Antiembolic Hose [OM.PC] Per Unit Routine CHF Questionnaire [COMM] Routine 05/12/17 18:30 Magnesium Sulfate/Water [Magnesium Sulfate 2 GM in Water 50 ML] 2 gm Premix Bag 1 bag IV Q6H 05/12/17 21:00 Acetaminophen [Tylenol Extra Strength] 1,000 mg PO Q6H Metoprolol Tartrate [Lopressor] 50 mg PO Q12H 05/12/17 Lunch 2 Gram Sodium Diet [DIET] 05/13/17 09:48 Potassium Chloride [Klor-Con M20] 40 meq PO ONETIME ONE 05/14/17 05:00 BASIC METABOLIC PANEL,BMP [CHEM] Timed CBC W/O DIFF,HEMOGRAM [HEME] Timed (1) INR,PT,PROTHROMBIN TIME [COAG] Timed - Plan Plan:: ASSESSMENT AND PLAN - Acute on chronic congestive heart failure - diastolic heart failure suspected with contribution from atrial fibrillation. Volume-ricci seems to be improving but exam suggests ongoing pleural effusions. volume status does not suggest the need for aggressive diuresis this morning and we are limited by blood pressure again. -Reassess volume status this afternoon -hold beta timothy with hypotension -Consider RIA inhibitor once more euvolemic, currently contraindicated by hypotension -Low sodium diet -Supplement oxygen as needed -Echocardiogram, either inpatient if she still here on Monday or as an outpatient Atrial fibrillation with rapid ventricular response - likely contribution from volume overload and probably hypoxia. rate control little better today but limited by hypotension. Metoprolol was held this morning. -Diltiazem infusion, transition to oral later if stable -trial of oral digoxin -hold metoprolol -Cardiac monitoring -Optimize volume status as above History of right leg DVT - chronically anticoagulated. INR therapeutic. -Continue warfarin Maintenance issues - - DVT prophylaxis - warfarin - GI prophylaxis - not indicated - Nutrition - low sodium Disposition - anticipate discharge to home after the hospital stay Kamlesh Prieto M.D.
[2017-05-13] MEDS ORDERED: Digoxin 125 MCG Tab PO ONE (10:30)
[2017-05-13] MEDS ORDERED: Potassium Chloride 20 MEQ Tab.ER PO ONE (10:30)
[2017-05-13] MEDS ORDERED: Warfarin 5 MG Tab PO SCH (13:00)
[2017-05-13] MEDS: BETOPTIC S 0.25% EYERT SCH (20:48)
[2017-05-13] MEDS: Sodium Chloride 0.9% 1,000 ML IV SCH (20:48)
[2017-05-13] MEDS: atorvaSTATin 20 MG Tab PO SCH (20:49)
[2017-05-14] MEDS: Acetaminophen 500 MG Tab PO SCH ×4 (04:36→21:21)
[2017-05-14] MEDS: Diltiazem 100 MG in Sodium Chloride 0.9% 100 ML IV SCH (08:36)
[2017-05-14] MEDS ORDERED: Digoxin 125 MCG Tab PO ONE (09:30)
--- NOTE | 2017-05-14 09:57 | PCM.PN ---
- General Info Date of Service: 05/14/17 Functional Status: Reports: Pain Controlled, Tolerating Diet, Ambulating - Review of Systems General: Reports: Weakness. Denies: Fever Pulmonary: Reports: Cough Cardiovascular: Denies: Edema Systems Review Comment:: No acute events overnight. Rate control has been stable with heart rates in the 90s to 100s. Blood pressures are better this morning and we've been able to increase the diltiazem infusion. No fevers. Clinically feeling better. She did require supplemental oxygen overnight. No strong evidence to support intravascular volume overload though exam still suggests intrathoracic fluid. No significant pain issues. - Patient Data Vitals - Most Recent: Last Vital Signs Temp 36.6 C 05/14/17 07:00 Pulse 101 H 05/14/17 08:36 Resp 15 05/14/17 09:00 BP 99/66 05/14/17 09:00 Pulse Ox 94 L 05/14/17 09:00 Weight - Most Recent: 86.183 kg I&O - Last 24 Hours: Intake & Output 05/13/17 05/14/17 05/14/17 22:59 06:59 14:59 Intake Total 600 878 Output Total 1100 1150 800 Balance -500 272 -800 Lab Results Last 24 Hours: Laboratory Results - last 24 hr 05/14/17 05/14/17 05/14/17 Range/Units 05:42 05:42 05:42 WBC 5.5 (4.5-11.0) K/uL RBC 3.09 L (3.30-5.50) M/uL Hgb 10.5 L (12.0-15.0) g/dL Hct 33.1 L (36.0-48.0) % MCV 107 H (80-98) fL MCH 34 H (27-31) pg MCHC 32 (32-36) % Plt Count 147 L (150-400) K/uL PT 18.1 H (9.5-12.0) sec INR 1.66 H (0.80-1.20) Sodium 140 (140-148) mmol/L Potassium 4.0 (3.6-5.2) mmol/L Chloride 103 (100-108) mmol/L Carbon Dioxide 30 (21-32) mmol/L Anion Gap 6.9 (5.0-14.0) mmol/L BUN 11 (7-18) mg/dL Creatinine 0.7 (0.6-1.0) mg/dL Est Cr Clr Drug Dosing 76.42 mL/min Estimated GFR (MDRD) > 60 (>60) Glucose 99 (74-106) mg/dL Calcium 8.6 (8.5-10.1) mg/dL Med Orders - Current: Current Medications Acetaminophen (Tylenol Extra Strength) 1,000 mg PO Q6H [facility] Last Admin: 05/14/17 08:35 Dose: 1,000 mg Atorvastatin Calcium (Lipitor) 60 mg PO BEDTIME [facility] Last Admin: 05/13/17 20:49 Dose: 60 mg Diltiazem HCl 100 mg/ Sodium (Chloride) 100 mls @ 5 mls/hr IV TITRATE CELE; 5 MG /HR PRN Reason: Protocol Last Admin: 05/14/17 08:36 Dose: 7.5 mg/hr, 7.5 mls/hr Sodium Chloride (Normal Saline) 1,000 mls @ 25 mls/hr IV ASDIRECTED [facility] Last Admin: 05/13/17 20:48 Dose: 25 mls/hr Metoprolol Tartrate (Lopressor) 50 mg PO Q12H [facility] Last Admin: 05/13/17 09:41 Dose: Not Given Betoptic S 0.25% (Ophth (Ptom)) 1 drop EYERT BID [facility] Last Admin: 05/13/17 20:48 Dose: 1 drop Ondansetron HCl (Zofran Odt) 4 mg PO Q6H PRN PRN Reason: Nausea able to take PO Polyethylene Glycol (Miralax) 17 gm PO DAILY PRN PRN Reason: Constipation Senna/Docusate Sodium (Senna Plus) 1 tab PO BID PRN PRN Reason: Constipation Sodium Chloride (Saline Flush) 10 ml FLUSH ONETIME PRN PRN Reason: PER RADIOLOGY PROTOCOL Last Admin: 05/12/17 07:58 Dose: 10 ml Thyroid ([place] Thyroid) 60 mg PO SUMOWETHFR@0730 [facility] Last Admin: 05/14/17 08:19 Dose: 60 mg Thyroid ([place] Thyroid) 120 mg PO TUSA@0730 [facility] Last Admin: 05/13/17 08:04 Dose: 120 mg Warfarin Sodium (Coumadin) 2.5 mg PO MoWeFr@1300 [facility] Last Admin: 05/12/17 13:28 Dose: 2.5 mg Warfarin Sodium (Coumadin) 7.5 mg PO ONETIME ONE Stop: 05/14/17 13:01 Warfarin Sodium (Coumadin) 5 mg PO SuTuThSa@1300 [facility] Discontinued Medications Acetaminophen (Tylenol) 650 mg PO Q4H PRN PRN Reason: Pain (Mild 1-3)/fever Digoxin (Lanoxin) 125 mcg IVPUSH ONETIME ONE Stop: 05/12/17 16:01 Last Admin: 05/12/17 16:08 Dose: 125 mcg Digoxin (Lanoxin) 125 mcg PO ONETIME ONE Stop: 05/13/17 10:31 Last Admin: 05/13/17 10:34 Dose: 125 mcg Digoxin (Lanoxin) 250 mcg PO ONETIME ONE Stop: 05/14/17 09:31 Furosemide (Lasix) 40 mg IVPUSH ONETIME ONE Stop: 05/12/17 08:11 Last Admin: 05/12/17 08:17 Dose: 40 mg Sodium Chloride (Normal Saline) 1,000 mls @ 500 mls/hr IV ASDIRECTED [facility] Last Infusion: 05/12/17 08:17 Dose: 10 mls/hr Sodium Chloride (Normal Saline) 90 mls @ 3 mls/sec IV ONETIME ONE Stop: 05/12/17 07:39 Last Admin: 05/12/17 07:58 Dose: 3 mls/sec Magnesium Sulfate 2 gm/ Premix 50 mls @ 12.5 mls/hr IV Q6H [facility] Stop: 05/13/17 16:29 Last Admin: 05/13/17 12:11 Dose: 12.5 mls/hr Iopamidol (Isovue-370 (76%)) 90 ml IV . DIRECTED [facility] Last Admin: 05/12/17 07:58 Dose: 100 ml Metoprolol Tartrate (Lopressor) 2.5 mg IVPUSH ONETIME ONE Stop: 05/12/17 07:19 Last Admin: 05/12/17 07:24 Dose: 2.5 mg Metoprolol Tartrate (Lopressor) 50 mg PO ONETIME ONE Stop: 05/12/17 07:19 Last Admin: 05/12/17 07:27 Dose: 50 mg Potassium Chloride (Klor-Con M20) 40 meq PO ONETIME ONE Stop: 05/13/17 10:31 Last Admin: 11/25/17 10:34 Dose: 40 meq Warfarin Sodium (Coumadin) 5 mg PO SuTuThSa@1300 [facility] Last Admin: 05/13/17 13:09 Dose: 5 mg - Exam Quality Assessment: No: Supplemental Oxygen General: Alert, Oriented, Cooperative, No Acute Distress Neck: Supple Lungs: Normal Respiratory Effort, Crackles (few both bases) Cardiovascular: Regular Rate, Irregular Rhythm GI/Abdominal Exam: Soft, No Distention Extremities: No Pedal Edema. No: Increased Warmth Skin: Warm, Dry Psy/Mental Status: Alert, Normal Affect - Problem List & Annotations (1) Atrial fibrillation with rapid ventricular response SNOMED Code(s): 259186920204282 Code(s): I48.91 - UNSPECIFIED ATRIAL FIBRILLATION Status: Acute Current Visit: Yes (2) Congestive heart failure SNOMED Code(s): 35124722 Code(s): I50.9 - HEART FAILURE, UNSPECIFIED Status: Acute Current Visit: Yes Qualifiers: Congestive heart failure type: unspecified congestive heart failure type Congestive heart failure chronicity: acute on chronic Qualified Code(s): I50.9 - Heart failure, unspecified - Problem List Review Problem List Initiated/Reviewed/Updated: Yes - My Orders Last 24 Hours: My Active Orders 05/14/17 13:00 Warfarin [Coumadin] 7.5 mg PO ONETIME ONE 05/15/17 05:00 BASIC METABOLIC PANEL,BMP [CHEM] Timed INR,PT,PROTHROMBIN TIME [COAG] Timed 05/16/17 13:00 Warfarin [Coumadin] 5 mg PO SuTuThSa@1300 - Plan Plan:: ASSESSMENT AND PLAN - Acute on chronic congestive heart failure - diastolic heart failure suspected with contribution from atrial fibrillation. Volume-ricci seems to be improving but exam suggests ongoing pleural effusions. With borderline blood pressures under hold off on diuresis again today and focus on rate control. -Reassess volume status this afternoon -hold beta timothy with hypotension -Consider RIA inhibitor once more euvolemic, currently contraindicated by hypotension -Low sodium diet -Supplement oxygen as needed -Echocardiogram in the morning Atrial fibrillation with rapid ventricular response - likely contribution from volume overload and probably hypoxia. rate control a little better but still suboptimal. -Diltiazem infusion, try to transition to oral medications this afternoon -Larger dose of digoxin this morning -hold metoprolol -Cardiac monitoring -Optimize volume status as above History of right leg DVT - chronically anticoagulated. INR sub-therapeutic. -Continue warfarin Maintenance issues - - DVT prophylaxis - warfarin - GI prophylaxis - not indicated - Nutrition - low sodium Disposition - anticipate discharge to home after the hospital stay Kamlesh Prieto M.D.
[2017-05-14] MEDS: BETOPTIC S 0.25% EYERT SCH ×2 (11:17→21:23)
[2017-05-14] MEDS ORDERED: Warfarin 2.5 MG Tab PO ONE (13:00)
[2017-05-14] MEDS: Diltiazem IR 30 MG Tab PO SCH ×2 (18:23→21:21)
[2017-05-14] MEDS: atorvaSTATin 20 MG Tab PO SCH (21:21)
[2017-05-15] MEDS: Diltiazem IR 30 MG Tab PO SCH (04:16)
[2017-05-15] MEDS: Acetaminophen 500 MG Tab PO SCH ×2 (04:16→09:07)
[2017-05-15] MEDS ORDERED: Diltiazem 120 MG Cap.CD PO SCH (09:00)
[2017-05-15] MEDS ORDERED: Digoxin 125 MCG Tab PO SCH ×2 (09:00→13:00)
[2017-05-15] MEDS ORDERED: Metoprolol Tartrate 25 MG Tab PO SCH (09:00)
[2017-05-15] MEDS: BETOPTIC S 0.25% EYERT SCH (09:06)
[2017-05-15 10:03] VITALS: BP 98/56
--- NOTE | 2017-05-15 11:50 | PCM.DCSUM1 ---
Discharge Summary - Hospital Course Brief History: 76-year-old female with history of chronic atrial fibrillation and recent hip fracture who presented with orthopnea and palpitations and was admitted for management of congestive heart failure and rapid atrial fibrillation. - Discharge Data Discharge Date: 05/15/17 Discharge Disposition: Home, [facility] Condition: Good - Discharge Diagnosis/Problem(s) (1) Atrial fibrillation with rapid ventricular response SNOMED Code(s): 747342451753233 ICD Code: I48.91 - UNSPECIFIED ATRIAL FIBRILLATION Status: Acute (2) Congestive heart failure SNOMED Code(s): 57552904 ICD Code: I50.9 - HEART FAILURE, UNSPECIFIED Status: Acute Qualifiers: Congestive heart failure type: diastolic Congestive heart failure chronicity: acute on chronic Qualified Code(s): I50.33 - Acute on chronic diastolic (congestive) heart failure (3) Pleural effusion due to CHF (congestive heart failure) SNOMED Code(s): 04245916 ICD Code: I50.9 - HEART FAILURE, UNSPECIFIED Status: Acute - Patient Summary/Data Consults: Consultations 05/15/17 08:30 PT Evaluation and Treatment [CONS] Routine Please Evaluate and Treat. PT Reason for Consult: Ambulation Pending Discharge: Yes This query below is only for informational purposes and is not editable. Admission Diagnosis/Problem: CHF, Congestive heart failure Hospital Course: Angie presented to the emergency room with shortness of breath and orthopnea. Workup in the emergency room was suggestive of congestive heart failure with bilateral pleural effusions as well as atrial fibrillation and a rapid ventricular response. She did receive diuretics in the emergency room and was admitted for further rate control and management. Overnight we had some difficulties with low blood pressures and we were unable to further diuresed the patient on the day of admission. We did use a diltiazem infusion but unfortunately ran into trouble with some hypotension. We did elect to discontinue the metoprolol to continue the diltiazem. The morning after admission we have not achieved great rate control so we elected to add digoxin with ongoing difficulty maintaining adequate blood pressure. I was not able to diuresis on the day after admission because of borderline hypotension but patient was able to self diuresis quite effectively with a net negative fluid balance on this day as well. After some further titration of the diltiazem infusion and additional dose of digoxin we have improved her rate control by the second day in the hospital. On the morning of discharge an echocardiogram was completed. This showed fairly normal left ventricular function. She has some mitral regurgitation and biatrial enlargement. Her rate control has improved dramatically using a combination of digoxin, diltiazem and metoprolol. Blood pressures have tolerated these 3 medications quite well. She did work with physical therapy. I believe she is safe for outpatient management at this time. She'll be going home with home care services to help ease the transition home. She will be on Lasix 40 mg once a day to help with her fluid balance as well as 250 g of digoxin, 120 mg of diltiazem and 12.5 mg of metoprolol. We did not start an RIA inhibitor because of her ongoing hypotension and we needed to use any available blood pressure for both diuresis and for her rate control. She would benefit from close clinic follow-up and this will be set up 1 week after hospital discharge. She is involved with the Cardiology clinic. - Patient Instructions Diet: Heart Healthy Diet Activity: As Tolerated Showering/Bathing: May Shower Notify Provider of: Fever, Increased Pain Other/Special Instructions: 1. You were in the hospital for management of mild congestive heart failure as well as atrial fibrillation with a fast heart rate. Your congestive heart failure has improved as we were able to slow down your heart rate. The ultrasound test of your heart showed that you have normal pumping function of your heart but that does not relax normally so you may accumulate fluid. I recommend that you take furosemide (Lasix) 20 mg once daily to help balance the fluid in your body. We have made several medication changes for the atrial fibrillation and they are listed below. We had to use 3 different medications to slow down your heart rate because your blood pressure is on the low side of normal. --Start taking diltiazem 120 mg once daily in the morning. This medication helps to slow down your heart rate and also lowers your blood pressure slightly. --Decrease your dose of metoprolol to 12.5 mg twice daily. This medication also helps to slow down your heart rate. --Start taking digoxin 250 mcg once daily in the morning. This is a third medication used to slow down her heart rate. 2. Continue your other medications including potassium and magnesium supplements as previously prescribed. 3. Please resume previous home health care services. 4. Follow-up with Cheri LAURENT in 1 week. You should have blood tests done to check your kidney function, potassium levels as well as your Coumadin check. 5. Please seek medical attention if you develop fever greater than 101, have sudden worsening of your shortness of breath, if you develop chest pain or if you feel that your heart is racing. - Discharge Plan Prescriptions/Med Rec: Digoxin 250 mcg PO DAILY #30 tablet Diltiazem HCl [Diltiazem 24Hr Cd] 120 mg PO DAILY #30 cap.er.24h Furosemide [Lasix] 20 mg PO DAILY #30 tablet Metoprolol Tartrate [Lopressor] 12.5 mg PO BID #30 tablet Home Medications: Home Meds Betaxolol [Betoptic S 0.25% Ophth Susp] 1 drop EYERT BID 02/25/13 [History] Thyroid [[place] Thyroid] 60 mg PO SUMOWETHFR@0730 02/25/13 [History] Warfarin Sodium 5 mg PO SUTUTHSA 02/25/13 [History] atorvaSTATin [Lipitor] 60 mg PO BEDTIME 02/26/13 [History] Calcium Carbonate/Vitamin D3 [Calcium Carbonate/Vitamin D 1250 MG-200 Unit] 1 tab PO TID 02/13/15 [History] Glucosamine Sulfate 500 mg PO BID 02/13/15 [History] Union-3S/DHA/Epa/Fish Oil [Union-3 Fish Oil 1,000 mg Sfgl] 1,000 mg PO TID 02/18 [History] Cholecalciferol (Vitamin D3) [Vitamin D3] 1 tab PO BID 05/10/15 [History] Multivitamin [Multivitamins] 1 tab PO DAILY 05/10/15 [History] Warfarin Sodium 2.5 mg PO MOWEFR 05/10/15 [History] Thyroid [[place] Thyroid] 120 mg PO TUSA@0730 05/18/15 [History] Magnesium Oxide [Magnesium] 1 tab PO BID 05/12/17 [History] Potassium Chloride 1 tab PO DAILY 05/12/17 [History] Digoxin 250 mcg PO DAILY #30 tablet 05/15/17 [Rx] Diltiazem HCl [Diltiazem 24Hr Cd] 120 mg PO DAILY #30 cap.er.24h 05/15/17 [Rx] Furosemide [Lasix] 20 mg PO DAILY #30 tablet 05/15/17 [Rx] Metoprolol Tartrate [Lopressor] 12.5 mg PO BID #30 tablet 05/15/17 [Rx] Patient Handouts: Diltiazem extended-release capsules or tablets, Digoxin tablets or capsules, Atrial Fibrillation Referrals: Gill Corrales PA [Primary Care Provider] - (1 week - follow-up hospital stay for atrial fibrillation. She will need to have a BMP and an INR checked at the time of the visit) - Discharge Summary/Plan Comment DC Time >30 min.: Yes (35 - coordinating f/u, medication counseling ) - Patient Data Vitals - Most Recent: Last Vital Signs Temp 36.8 C 05/15/17 08:00 Pulse 82 05/15/17 09:57 Resp 18 05/15/17 09:57 BP 98/56 L 05/15/17 09:57 Pulse Ox 97 05/15/17 09:57 Weight - Most Recent: 84.005 kg I&O - Last 24 hours: Intake & Output 05/14/17 05/15/17 05/15/17 22:59 06:59 14:59 Intake Total 337 Output Total 750 Balance -413 Lab Results - Last 24 hrs: Laboratory Results - last 24 hr 05/15/17 05/15/17 Range/Units 05:36 05:36 PT 26.0 H (9.5-12.0) sec INR 2.35 H (0.80-1.20) Sodium 142 (140-148) mmol/L Potassium 3.9 (3.6-5.2) mmol/L Chloride 105 (100-108) mmol/L Carbon Dioxide 27 (21-32) mmol/L Anion Gap 9.7 (5.0-14.0) mmol/L BUN 8 (7-18) mg/dL Creatinine 0.7 (0.6-1.0) mg/dL Est Cr Clr Drug Dosing 76.42 mL/min Estimated GFR (MDRD) > 60 (>60) Glucose 87 (74-106) mg/dL Calcium 8.9 (8.5-10.1) mg/dL Digoxin 0.60 L (0.90-2.00) ng/mL Med Orders - Current: Current Medications Acetaminophen (Tylenol Extra Strength) 1,000 mg PO Q6H [facility] Last Admin: 05/15/17 09:07 Dose: 1,000 mg Atorvastatin Calcium (Lipitor) 60 mg PO BEDTIME [facility] Last Admin: 05/14/17 21:21 Dose: 60 mg Digoxin (Lanoxin) 250 mcg PO DAILY [facility] Last Admin: 05/15/17 09:08 Dose: 250 mcg Diltiazem HCl (Cardizem Cd) 120 mg PO DAILY [facility] Last Admin: 05/15/17 09:07 Dose: 120 mg Metoprolol Tartrate (Lopressor) 12.5 mg PO BID [facility] Last Admin: 05/15/17 09:07 Dose: 12.5 mg Betoptic S 0.25% (Ophth (Ptom)) 1 drop EYERT BID [facility] Last Admin: 05/15/17 09:06 Dose: 1 drop Ondansetron HCl (Zofran Odt) 4 mg PO Q6H PRN PRN Reason: Nausea able to take PO Polyethylene Glycol (Miralax) 17 gm PO DAILY PRN PRN Reason: Constipation Senna/Docusate Sodium (Senna Plus) 1 tab PO BID PRN PRN Reason: Constipation Sodium Chloride (Saline Flush) 10 ml FLUSH ONETIME PRN PRN Reason: PER RADIOLOGY PROTOCOL Last Admin: 05/12/17 07:58 Dose: 10 ml Thyroid ([place] Thyroid) 60 mg PO SUMOWETHFR@0730 [facility] Last Admin: 05/15/17 08:01 Dose: 60 mg Thyroid ([place] Thyroid) 120 mg PO TUSA@0730 [facility] Last Admin: 05/13/17 08:04 Dose: 120 mg Warfarin Sodium (Coumadin) 2.5 mg PO MoWeFr@1300 [facility] Last Admin: 05/12/17 13:28 Dose: 2.5 mg Warfarin Sodium (Coumadin) 5 mg PO SuTuThSa@1300 [facility] Discontinued Medications Acetaminophen (Tylenol) 650 mg PO Q4H PRN PRN Reason: Pain (Mild 1-3)/fever Digoxin (Lanoxin) 125 mcg IVPUSH ONETIME ONE Stop: 05/12/17 16:01 Last Admin: 05/12/17 16:08 Dose: 125 mcg Digoxin (Lanoxin) 125 mcg PO ONETIME ONE Stop: 05/13/17 10:31 Last Admin: 05/13/17 10:34 Dose: 125 mcg Digoxin (Lanoxin) 250 mcg PO ONETIME ONE Stop: 05/14/17 09:31 Last Admin: 05/14/17 09:56 Dose: 250 mcg Digoxin (Lanoxin) 250 mcg PO DAILY@1300 [facility] Diltiazem HCl (Cardizem) 30 mg PO Q6HR [facility] Last Admin: 05/15/17 04:16 Dose: 30 mg Furosemide (Lasix) 40 mg IVPUSH ONETIME ONE Stop: 05/12/17 08:11 Last Admin: 05/12/17 08:17 Dose: 40 mg Sodium Chloride (Normal Saline) 1,000 mls @ 500 mls/hr IV ASDIRECTED [facility] Last Infusion: 05/12/17 08:17 Dose: 10 mls/hr Sodium Chloride (Normal Saline) 90 mls @ 3 mls/sec IV ONETIME ONE Stop: 05/12/17 07:39 Last Admin: 05/12/17 07:58 Dose: 3 mls/sec Diltiazem HCl 100 mg/ Sodium (Chloride) 100 mls @ 5 mls/hr IV TITRATE CELE; 5 MG /HR PRN Reason: Protocol Stop: 05/14/17 19:30 Last Titration: 05/14/17 19:26 Dose: 0 mg/hr, 0 mls/hr Sodium Chloride (Normal Saline) 1,000 mls @ 25 mls/hr IV ASDIRECTED [facility] Last Admin: 05/13/17 20:48 Dose: 25 mls/hr Magnesium Sulfate 2 gm/ Premix 50 mls @ 12.5 mls/hr IV Q6H [facility] Stop: 05/13/17 16:29 Last Admin: 05/13/17 12:11 Dose: 12.5 mls/hr Iopamidol (Isovue-370 (76%)) 90 ml IV . DIRECTED [facility] Last Admin: 05/12/17 07:58 Dose: 100 ml Metoprolol Tartrate (Lopressor) 2.5 mg IVPUSH ONETIME ONE Stop: 05/12/17 07:19 Last Admin: 05/12/17 07:24 Dose: 2.5 mg Metoprolol Tartrate (Lopressor) 50 mg PO ONETIME ONE Stop: 05/12/17 07:19 Last Admin: 05/12/17 07:27 Dose: 50 mg Metoprolol Tartrate (Lopressor) 50 mg PO Q12H [facility] Last Admin: 05/13/17 09:41 Dose: Not Given Potassium Chloride (Klor-Con M20) 40 meq PO ONETIME ONE Stop: 05/13/17 10:31 Last Admin: 05/13/17 10:34 Dose: 40 meq Warfarin Sodium (Coumadin) 5 mg PO Vidal@1300 [facility] Last Admin: 05/13/17 13:09 Dose: 5 mg Warfarin Sodium (Coumadin) 7.5 mg PO ONETIME ONE Stop: 05/14/17 13:01 Last Admin: 05/14/17 13:01 Dose: 7.5 mg - Exam Quality Assessment: Denies: Supplemental Oxygen General: Reports: Alert, Oriented, Cooperative, No Acute Distress Neck: Reports: Supple Lungs: Reports: Normal Respiratory Effort, Crackles (few both bases) Cardiovascular: Reports: Regular Rate, Irregular Rhythm GI/Abdominal Exam: Soft, No Distention Extremities: No Pedal Edema Psy/Mental Status: Reports: Alert, Normal Affect *Q Meaningful Use (DIS) - VTE *Q VTE Criteria *Q: - Stroke *Q Stroke Criteria *Q: - AMI *Q AMI Criteria *Q:
[2017-05-15] MEDS: Warfarin 2.5 MG Tab PO SCH (13:06)
[2017-05-16] MEDS ORDERED: Warfarin 5 MG Tab PO SCH (13:00)
== END 2017-05-15 13:05 | disposition home health service (06) | DRG 293 ==
LOC: JP.ED 05:55 → JP.ICU 09:12
PROVIDERS: ADMIT Internal Medicine; ATTEND Internal Medicine
DX: I50.33 Acute on chronic diastolic (congestive) heart failure (principal); I48.2 Chronic atrial fibrillation; E03.9 Hypothyroidism, unspecified; Z87.891 Personal history of nicotine dependence; Z79.01 Long term (current) use of anticoagulants; Z86.718 Personal history of other venous thrombosis and embolism; Z66 Do not resuscitate; R06.02 Shortness of breath; Z88.1 Allergy status to other antibiotic agents; Z88.5 Allergy status to narcotic agent; Z88.8 Allergy status to other drugs, medicaments and biological substances; Z91.048 Other nonmedicinal substance allergy status
CPT/HCPCS: 36415; 71010 ×2; 71275; 80053; 82553; 83880; 84484; 85025; 85610; 85730; 93005; 93010; 96361; 96374; 96375; 99285; A9270; J1940; J7030; J7040; J7050; Q9967; 80048; 80162; 81001; 83735; 84443; 85027; 93306; 97162-GP; J1160; J3475; J3490

== ENCOUNTER 2023-06-01 12:54 | Inpatient (IN) | payer MEDICARE, BC ==
[2023-06-01] MEDS ORDERED: Diltiazem 25 MG/5 ML SDV IVPUSH ONE ×3 (13:42→14:13)
[2023-06-01 13:46] LABS: APPEARANCE,URINE CLEAR (CLEAR); BILIRUBIN,URINE SMALL (NEGATIVE); COLOR,URINE YELLOW (YELLOW); GLUCOSE,URINE NEGATIVE (NEGATIVE); KETONES,URINE NEGATIVE (NEGATIVE); LEUKOCYTE ESTERASE,URINE NEGATIVE (NEGATIVE); NITRITE,URINE NEGATIVE (NEGATIVE); OCCULT BLOOD,URINE SMALL (NEGATIVE); PH,URINE 5.5 (5.0-8.0); PROTEIN,URINE >=300 mg/dL (NEGATIVE); UROBILINOGEN,URINE 0.2 EU/dL (0.2-1.0)
[2023-06-01] MEDS ORDERED: Sodium Chloride 0.9% 1,000 ML IV ONE (13:49)
[2023-06-01 13:56] LABS: BASOPHILS PERCENT AUTO 0.3 % (0.1-1.3); EOSINOPHILS ABSOLUTE AUTO 0.18 K/uL (0.00-0.40); EOSINOPHILS PERCENT AUTO 2.7 % (0.0-5.4); HEMATOCRIT 38.9 % (34.3-46.0); IMMATURE GRAN ABSOLUTE AUTO 0.03 K/uL (0.00-0.23); IMMATURE GRAN PERCENT AUTO 0.5 % (0.0-0.7); LYMPHOCYTES ABSOLUTE AUTO 0.73 K/uL (0.8-3.3); LYMPHOCYTES PERCENT AUTO 11.1 % (11.4-47.7); MEAN CORPUSCULAR HEMOGLOBIN 33.4 pg (31.6-35.5); MEAN CORPUSCULAR HGB CONC 33.4 g/dL (31.6-35.5); MONOCYTES ABSOLUTE AUTO 0.71 K/uL (0.20-0.90); MONOCYTES PERCENT AUTO 10.8 % (3.3-12.6); NEUTROPHILS ABSOLUTE AUTO 4.91 K/uL (1.0-7.6); NEUTROPHILS PERCENT AUTO 74.6 % (40.0-78.1); PLATELET COUNT,PLT 126 K/uL (130-375); RED BLOOD CELL COUNT 3.89 M/uL (3.77-5.24); WHITE BLOOD CELL COUNT,WBC 6.6 K/uL (3.2-11.0)
[2023-06-01 13:58] LABS: BASOPHILS ABSOLUTE AUTO 0.02 K/uL (0.00-0.10)
[2023-06-01 14:02] LABS: AMORPHOUS SEDIMENT,URINE MANY; BACTERIA,URINE MODERATE; EPITHELIAL CELLS,URINE FEW; MUCUS,URINE RARE
[2023-06-01 14:30] LABS: INR 1.4; PROTHROMBIN TIME 14.1 sec (9.2-10.6)
[2023-06-01 14:34] LABS: A/G RATIO 0.9 (1.2-2.2); ALANINE AMINOTRANSFERASE,ALT 63 U/L (12-78); ALBUMIN 3.1 g/dL (3.4-5.0); ALKALINE PHOSPHATASE 48 U/L (46-116); ANION GAP 8.5 mmol/L (5.0-14.0); ASPARTATE AMNIOTRANSFERASE,AST 94 U/L (15-37); BILIRUBIN TOTAL 0.7 mg/dL (0.2-1.0); BLOOD UREA NITROGEN,BUN 39 mg/dL (7-18); CALCIUM 8.4 mg/dL (8.5-10.1); CARBON DIOXIDE,CO2 27 mmol/L (21-32); CHLORIDE,CL 108 mmol/L (100-108); CREATININE 1.1 mg/dL (0.6-1.0); EST CRCL DRUG DOSING (CG) 44.07 mL/min; ESTIMATED GFR 50 mL/min (>60); GLUCOSE RANDOM 114 mg/dL (74-106); PROTEIN TOTAL,TP 6.5 g/dL (6.4-8.2); SODIUM,NA 143 mmol/L (140-148)
[2023-06-01] MEDS: Diltiazem 100 MG in Sodium Chloride 0.9% 100 ML IV SCH (15:04)
[2023-06-01 15:07] LABS: INFLUENZA A NAA NEGATIVE (NEGATIVE); INFLUENZA B NAA NEGATIVE (NEGATIVE); RESPIRATORY SYNCYTIAL VIR NAA NEGATIVE (NEGATIVE)
[2023-06-01] MEDS ORDERED: Metoprolol Tartrate 25 MG Tab PO ONE (15:08)
[2023-06-01 15:09] LABS: CORONAVIRUS COVID-19 NAA POSITIVE (NEGATIVE)
[2023-06-01] MEDS ORDERED: Magnesium Hydroxide 400 MG/5 ML Susp 30 ML Cup PO PRN (16:52)
[2023-06-01] MEDS ORDERED: Benzonatate 100 MG Cap PO PRN (16:52)
[2023-06-01] MEDS ORDERED: Sennosides/Docusate Sodium 50-8.6 MG Tab PO PRN (16:52)
[2023-06-01] MEDS ORDERED: Ondansetron 4 MG/2 ML SDV IV PRN (16:52)
[2023-06-01] MEDS ORDERED: Acetaminophen 325 MG Tab PO PRN (16:52)
[2023-06-01] MEDS ORDERED: guaiFENesin/Dextromethorphan 100-10 MG/5 ML Soln 10 ML Cup PO PRN (16:52)
[2023-06-01] MEDS ORDERED: Ondansetron 4 MG Tab.DIS PO PRN (16:52)
[2023-06-01] MEDS ORDERED: REMDESIVIR 200 MG in Sodium Chloride 0.9% 250 ML IV ONE (17:15)
[2023-06-01] MEDS: Warfarin 5 MG Tab PO SCH (18:22)
[2023-06-01] MEDS: Enoxaparin 40 MG/0.4 ML Syringe SUBCUT SCH (18:22)
[2023-06-01] MEDS ORDERED: Non-Formulary Medication 1 Each (Atorvastatin [Lipitor] 40 MG Tab) PO SCH (21:00)
[2023-06-01] MEDS: atorvaSTATin 20 MG Tab PO SCH (21:08)
[2023-06-01] MEDS: Lactobacillus Rhamnosus GG (Probiotic) Cap PO SCH (21:08)
[2023-06-01] MEDS: Melatonin 3 MG Tab PO SCH (21:08)
[2023-06-01] MEDS: Metoprolol Tartrate 25 MG Tab PO SCH (21:31)
[2023-06-02 05:50] LABS: HEMATOCRIT 40.9 % (34.3-46.0); HEMOGLOBIN 13.5 g/dL (11.2-15.5); MEAN CORPUSCULAR HEMOGLOBIN 33.3 pg (31.6-35.5); MEAN CORPUSCULAR VOLUME 100.7 fL (81.4-99.0); RED BLOOD CELL COUNT 4.06 M/uL (3.77-5.24); WHITE BLOOD CELL COUNT,WBC 5.2 K/uL (3.2-11.0)
[2023-06-02 06:09] LABS: INR 1.5; PROTHROMBIN TIME 14.8 sec (9.2-10.6)
[2023-06-02 06:11] LABS: A/G RATIO 0.8 (1.2-2.2); ALANINE AMINOTRANSFERASE,ALT 57 U/L (12-78); ALBUMIN 2.9 g/dL (3.4-5.0); ALKALINE PHOSPHATASE 45 U/L (46-116); BILIRUBIN TOTAL 0.7 mg/dL (0.2-1.0); BLOOD UREA NITROGEN,BUN 34 mg/dL (7-18); CALCIUM 8.2 mg/dL (8.5-10.1); CARBON DIOXIDE,CO2 25 mmol/L (21-32); CHLORIDE,CL 109 mmol/L (100-108); EST CRCL DRUG DOSING (CG) 48.48 mL/min; ESTIMATED GFR 56 mL/min (>60); GLUCOSE RANDOM 95 mg/dL (74-106); MAGNESIUM 1.5 mg/dL (1.8-2.4); POTASSIUM,K 3.8 mmol/L (3.6-5.2); PROTEIN TOTAL,TP 6.4 g/dL (6.4-8.2); SODIUM,NA 144 mmol/L (140-148)
[2023-06-02 06:24] LABS: ANION GAP 13.8 mmol/L (5.0-14.0); ASPARTATE AMNIOTRANSFERASE,AST 93 U/L (15-37)
[2023-06-02] MEDS: Diltiazem 100 MG in Sodium Chloride 0.9% 100 ML IV SCH (06:28)
[2023-06-02] MEDS ORDERED: THYROID 60 MG PO SCH (07:30)
[2023-06-02] MEDS: Metoprolol Tartrate 25 MG Tab PO SCH ×2 (08:09→20:10)
[2023-06-02] MEDS: Lactobacillus Rhamnosus GG (Probiotic) Cap PO SCH ×2 (08:10→20:10)
[2023-06-02] MEDS: Magnesium Sulfate/Water 2 GM in Premix Bag 1 BAG IV SCH ×3 (09:31→21:52)
[2023-06-02] MEDS: Sodium Chloride 0.9% 1,000 ML IV SCH ×2 (10:37→15:34)
[2023-06-02] MEDS ORDERED: Diltiazem 120 MG Cap.CD PO ONE (12:00)
[2023-06-02] MEDS: Warfarin 5 MG Tab PO SCH (12:03)
[2023-06-02] MEDS: REMDESIVIR 100 MG in Sodium Chloride 0.9% 100 ML IV SCH (15:26)
[2023-06-02] MEDS: Enoxaparin 40 MG/0.4 ML Syringe SUBCUT SCH (16:49)
[2023-06-02] MEDS: Melatonin 3 MG Tab PO SCH (20:09)
[2023-06-02] MEDS: atorvaSTATin 20 MG Tab PO SCH (20:10)
[2023-06-03 04:44] LABS: HEMATOCRIT 39.1 % (34.3-46.0); HEMOGLOBIN 12.9 g/dL (11.2-15.5); RED BLOOD CELL COUNT 3.91 M/uL (3.77-5.24); WHITE BLOOD CELL COUNT,WBC 4.3 K/uL (3.2-11.0)
[2023-06-03 05:01] LABS: INR 1.8; PROTHROMBIN TIME 17.9 sec (9.2-10.6)
[2023-06-03 05:10] LABS: A/G RATIO 0.9 (1.2-2.2); ALANINE AMINOTRANSFERASE,ALT 51 U/L (12-78); ALBUMIN 2.8 g/dL (3.4-5.0); ALKALINE PHOSPHATASE 45 U/L (46-116); ASPARTATE AMNIOTRANSFERASE,AST 78 U/L (15-37); BILIRUBIN TOTAL 0.7 mg/dL (0.2-1.0); BLOOD UREA NITROGEN,BUN 29 mg/dL (7-18); CARBON DIOXIDE,CO2 28 mmol/L (21-32); CHLORIDE,CL 109 mmol/L (100-108); CREATININE 0.9 mg/dL (0.6-1.0); EST CRCL DRUG DOSING (CG) 53.86 mL/min; ESTIMATED GFR 64 mL/min (>60); GLUCOSE RANDOM 83 mg/dL (74-106); POTASSIUM,K 4.2 mmol/L (3.6-5.2); SODIUM,NA 144 mmol/L (140-148)
[2023-06-03 05:15] LABS: ANION GAP 11.2 mmol/L (5.0-14.0)
[2023-06-03] MEDS ORDERED: THYROID 60 MG PO SCH (07:30)
[2023-06-03] MEDS: Lactobacillus Rhamnosus GG (Probiotic) Cap PO SCH ×2 (08:27→21:53)
[2023-06-03] MEDS: Metoprolol Tartrate 25 MG Tab PO SCH ×2 (08:28→21:52)
[2023-06-03] MEDS ORDERED: Diltiazem 120 MG Cap.CD PO SCH ×2 (09:00)
[2023-06-03] MEDS: Diltiazem 180 MG Cap.CD PO SCH (10:12)
[2023-06-03] MEDS: Warfarin 5 MG Tab PO SCH (12:35)
[2023-06-03] MEDS: REMDESIVIR 100 MG in Sodium Chloride 0.9% 100 ML IV SCH (15:20)
[2023-06-03] MEDS: Enoxaparin 40 MG/0.4 ML Syringe SUBCUT SCH (17:15)
[2023-06-03] MEDS: Melatonin 3 MG Tab PO SCH (21:52)
[2023-06-03] MEDS: atorvaSTATin 20 MG Tab PO SCH (21:52)
[2023-06-04 05:01] LABS: INR 2.2; PROTHROMBIN TIME 21.4 sec (9.2-10.6)
[2023-06-04 05:13] LABS: ALANINE AMINOTRANSFERASE,ALT 45 U/L (12-78); ALKALINE PHOSPHATASE 45 U/L (46-116); ANION GAP 7.4 mmol/L (5.0-14.0); ASPARTATE AMNIOTRANSFERASE,AST 65 U/L (15-37); BILIRUBIN TOTAL 0.8 mg/dL (0.2-1.0); BLOOD UREA NITROGEN,BUN 31 mg/dL (7-18); CALCIUM 7.9 mg/dL (8.5-10.1); CARBON DIOXIDE,CO2 29 mmol/L (21-32); CHLORIDE,CL 107 mmol/L (100-108); CREATININE 0.9 mg/dL (0.6-1.0); EST CRCL DRUG DOSING (CG) 53.86 mL/min; ESTIMATED GFR 64 mL/min (>60); GLUCOSE RANDOM 95 mg/dL (74-106); POTASSIUM,K 3.8 mmol/L (3.6-5.2); PROTEIN TOTAL,TP 6.1 g/dL (6.4-8.2); SODIUM,NA 143 mmol/L (140-148)
[2023-06-04] MEDS: Metoprolol Tartrate 25 MG Tab PO SCH (08:19)
[2023-06-04] MEDS: Diltiazem 180 MG Cap.CD PO SCH (08:20)
[2023-06-04] MEDS: Lactobacillus Rhamnosus GG (Probiotic) Cap PO SCH (08:20)
[2023-06-04 11:31] VITALS: BP 130/60; PULSE 80
[2023-06-04] MEDS ORDERED: Warfarin 5 MG Tab PO SCH (13:00)
[2023-06-04] MEDS ORDERED: Warfarin 2.5 MG Tab PO SCH (13:00)
== END 2023-06-04 13:05 | disposition home or self-care (01) | DRG 179 ==
LOC: JP.ED 12:54 → JP.ICU 15:34
PROVIDERS: ADMIT Internal Medicine; ATTEND Internal Medicine
PROC: XW033E5 Introduction of Remdesivir Anti-infective into Peripheral Vein, Percutaneous Approach, New Technology Group 5 (ICD-10-PCS; principal; 2023-06-01)
DX: U07.1 COVID-19 (principal); E86.0 Dehydration; I48.91 Unspecified atrial fibrillation; G30.9 Alzheimer's disease, unspecified; Z91.048 Other nonmedicinal substance allergy status; F02.80 Dementia in other diseases classified elsewhere, unspecified severity, without behavioral disturbance, psychotic disturbance, mood disturbance, and anxiety; Z88.4 Allergy status to anesthetic agent; Z66 Do not resuscitate; I50.9 Heart failure, unspecified; J44.9 Chronic obstructive pulmonary disease, unspecified; E03.9 Hypothyroidism, unspecified; Z79.01 Long term (current) use of anticoagulants; Z88.1 Allergy status to other antibiotic agents; Z88.5 Allergy status to narcotic agent; Z88.8 Allergy status to other drugs, medicaments and biological substances; Z79.899 Other long term (current) drug therapy; Z98.49 Cataract extraction status, unspecified eye; Z90.49 Acquired absence of other specified parts of digestive tract; Z90.89 Acquired absence of other organs; Z87.891 Personal history of nicotine dependence; Z86.73 Personal history of transient ischemic attack (TIA), and cerebral infarction without residual deficits
CPT/HCPCS: 0241U; 36415; 71045; 80053; 81001; 83605; 83735; 83880; 84145; 85025; 85027; 85610; 86140; 87086; 93005; 96361; 96365; 96376; 97110; 97161; 99285; 93010; 99223; 99233; 99238; A9270-GY; J1650; J3475; J3490; J7030; J7050